=== PATIENT | male | born 1970 | race Caucasian/White ===

== ENCOUNTER 2024-09-19 21:02 | Emergency (ER) | payer OTHER, SELFPAY ==
[2024-09-19 21:07] VITALS: BP 194/112
[2024-09-19 21:29] LABS: % Basophils 0.5 % (0-2); % Eosinophils 2.2 % (0-6); % Immature Granulocytes 0.2 % (0-0.5); % Lymphocytes 16.7 % (20.5-51.1); % Monocytes 5.2 % (1.7-9.3); % Neutrophils 75.2 % (42.2-75.2); Absolute Basophils 0.1 10^3/uL (0-0.2); Absolute Eosinophils 0.2 10^3/uL (0-0.7); Absolute Lymphocytes 1.7 10^3/uL (1.2-3.4); Absolute Monocytes 0.5 10^3/uL (0.1-0.6); Absolute Neutrophils 7.7 10^3/uL (1.4-6.5); Hematocrit 42.6 % (39.0-52.0); Hemoglobin 15.1 g/dL (13.0-18.0); Mean Corp Hgb Conc. 35.4 g/dL (33.0-37.0); Mean Corpuscular Hgb 28.9 pg (27.0-31.0); Mean Corpuscular Volume 81.5 fL (80.0-94.0); Mean Platelet Volume 9.1 fL (7.4-10.4); Nucleated Red Blood Cells % 0 % (-); Platelet Count 230 10^3/uL (130-400); Red Blood Cell Count 5.23 10^6/uL (4.70-6.10); Red Cell Dist. Width 11.7 % (11.5-14.5); White Blood Cell Count 10.2 10^3/uL (4.8-10.8)
[2024-09-19 21:53] LABS: ALT (SGPT) 26 U/L (0-50); AST (SGOT) 21 U/L (17-59); Albumin 4.3 g/dl (3.5-5.0); Alkaline Phosphatase 135 U/L (38-126); Blood Urea Nitrogen 17 mg/dl (9-20); Calcium 9.3 mg/dl (8.4-10.2); Carbon Dioxide 26 mmol/L (22-30); Chloride 99 mmol/L (98-107); Glucose 318 mg/dl (70-99); Potassium 4.2 mmol/L (3.5-5.1); Sodium 134 mmol/L (135-145); Total Bilirubin 0.9 mg/dl (0.2-1.3); eGFR > 60.00
[2024-09-19 22:18] LABS: TSH Reflex To Free T4 1.07 uIU/ml (0.47-4.68)
== END 2024-09-20 00:30 ==
LOC: EMR 21:02
PROVIDERS: EMERGENCY PHYSICIAN Emergency Medicine
DX: R22.1 Localized swelling, mass and lump, neck (principal); Z53.29 Procedure and treatment not carried out because of patient's decision for other reasons
CPT/HCPCS: 80053; 84443; 85025

== ENCOUNTER 2025-03-29 23:20 | Inpatient (IN) | payer OTHER, SELFPAY ==
[2025-03-29 20:37] VITALS: BP 185/113
[2025-03-29 20:56] LABS: Hematocrit 46.7 % (39.0-52.0); Hemoglobin 16.0 g/dL (13.0-18.0); Mean Corp Hgb Conc. 34.3 g/dL (33.0-37.0); Mean Corpuscular Volume 80.1 fL (80.0-94.0); Nucleated Red Blood Cells % 0 % (-); Platelet Count 310 10^3/uL (130-400); Red Cell Dist. Width 12.5 % (11.5-14.5)
[2025-03-29 21:16] LABS: ALT (SGPT) 19 U/L (0-50); AST (SGOT) 17 U/L (17-59); Albumin 4.7 g/dl (3.5-5.0); Alkaline Phosphatase 134 U/L (38-126); Blood Urea Nitrogen 18 mg/dl (9-20); Calcium 9.4 mg/dl (8.4-10.2); Carbon Dioxide 26 mmol/L (22-30); Chloride 99 mmol/L (98-107); Glucose 416 mg/dl (70-99); Potassium 4.5 mmol/L (3.5-5.1); Sodium 135 mmol/L (135-145); Total Protein 8.5 g/dl (6.3-8.2); eGFR > 60.00
--- NOTE | 2025-03-29 22:31 | ED.GENMED ---
History of Present Illness
<Dayton Wen PA-C - Last Filed: 03/30/25 00:03>
General
Chief Complaint: Skin Problem
Source: patient
Time Seen by Provider: 03/29/25 21:47
History of Present Illness
History of Present Illness:
54-year-old male with no reported past medical history presenting to the emergency department for evaluation of a right foot ulcer that has been present for over 1 week, went to urgent care initially and was prescribed 2 separate antibiotics but
wound continues to worsen and become more malodorous. Patient notes there is some pain associated but states overall not very painful. He denies any fevers, chills, rigors. No history of similar. No known history of diabetes. Patient is unaware
of any trauma to the affected area.
Past History
<Dayton Wen PA-C - Last Filed: 03/30/25 00:03>
Past History
ED Past Medical History: None
ED Past Surgical History: Orthopedic
Social History
Tobacco: Smoker
Alcohol: None
Drug: None
Personal:
Living: with family
Review of Systems
<VERONA Narayan Last Filed: 03/30/25 00:03>
Review of Systems
All Other Systems: ROS reviewed and negative except as documented in HPI and ROS
Phy Exam
<Dayton Wen PA-C - Last Filed: 03/30/25 00:03>
Physical Exam
Physical Exam:
GENERAL: Alert , in no apparent distress
HEAD: Normocephalic atraumatic
EYE: conjunctiva clear
NECK: Supple
ENT: o/p clr, mmm.
CARDIAC: Regular rate and rhythm
LUNGS: Clear breath sounds bilaterally, no acute respiratory distress, no wheezes/rales/rhonchi
NEUROLOGICAL: Alert and oriented
SKIN: Warm and dry, approximately 2 cm black, purulent and significantly malodorous wound to the plantar surface of the midfoot medially, skin breakdown surrounding, wound probes into the deep tissues. Extremity is otherwise warm, palpable pedal
and tibial pulses.
MUSCULOSKELETAL: well perfused.
PSYCH: Normal and appropriate interaction.
Scores
<Dayton Wen PA-C - Last Filed: 03/30/25 00:03>
Heart Failure Risk
Heart Failure Risk Score: Not Applicable
Heart Score for Chest Pain Patients
STEMI patient?: Not applicable
Withdrawal Assessment of Alcohol
Withdrawal Assessment Completed?: Not applicable
Sepsis
<Dayton Wen PA-C - Last Filed: 03/30/25 00:03>
Sepsis Screening
Sepsis Assessment: Sepsis Ruled Out
Sepsis Screen
Sepsis Screen: Sepsis Ruled Out
Date: 03/30/25
Time: 00:03
<Joel Giles MD - Last Filed: 03/30/25 01:11>
Sepsis Screen
Sepsis Screen: Sepsis Ruled Out
Date: 03/30/25
Time: 01:07
Course
<Dayton Wen PA-C - Last Filed: 03/30/25 00:03>
Orders/Labs/Results
Orders:
Orders
03/29/25 20:36
CR Foot - Right Min 3 Views Urgent
Comment:
Reason For Exam: infection
03/29/25 20:45
C-Reactive Protein Urgent
Comment: ADD ON
Complete Blood Count/With Diff Urgent
Comprehensive Metabolic Panel Urgent
Erythrocyte Sed Rate Urgent
Comment: ADD ON
Blood Culture Q20M
RAUDEL Source: Blood/Venous
Specimen Description:
Comment: Urgent from separate sites. If patient screens positive for possible sepsis
03/29/25 22:27
Add On- LAB Urgent
Tests Added?: ESR/CRP
03/29/25 22:30
Piperacillin/Tazo 3.375 Gram [Zosyn] 3.375 gram in 50 ml IV NOW
03/29/25 22:31
0.9% Sodium Chloride 1000 ml [Nss] 1,000 ml IV BOLUS
Insulin Aspart [NOVOLOG vial] 6 units SC NOW STA
03/29/25 22:35
Blood Culture Q20M
RAUDEL Source: Blood/Venous
Specimen Description:
Comment: Urgent from separate sites. If patient screens positive for possible sepsis
Wound Culture [Wound/Abscess/Other Culture] Urgent
RAUDEL Source: Foot
Specimen Description: Right
Date Specimen was Collected: 03/29/25
Time Specimen was Collected: 22:33
03/29/25 22:59
Amlodipine [Norvasc] 5 mg PO NOW STA
Nicotine [Nicoderm Transdermal] 21 mg TRANSDERM DAILY STA
03/29/25 23:00
Flush (0.9% Sodium Chloride) [Flush (Nss)] See Dose Instructions IV PER PROTOCOL
03/29/25 23:01
Admit/Transfer Patient As Directed
Co-Sign Provider:
Level of Care: Inpatient admission
Assign to:: Medical/Surgical
Physician / Group: zay villarreal
Diagnosis: right foot diabetic ulcer, r great toe fx, new dm2, new htn
Reason for Hospitalization: right foot diabetic ulcer, r great toe fx, new dm2, new htn
Expected length of stay greater than two midnights?: Yes
ELOS- Estimated Length of Stay in days: 4
I certify the patient meets the requirements for IP care: Yes
Code Status As Directed
Resuscitation Status: Full Code
PODIATRY CONSULT Routine
Consulting Provider: Lilliana Acuna
Was physician already notified: Yes
Reason for consult: right heeel ulcer, left great toe fx new dm2
03/29/25 23:03
Vancomycin [Vancocin] 2,000 mg 0.9% Sodium Chloride 500 ml [Nss] 500 ml IV NOW
03/29/25 23:04
PRN Pain Medication Management As Directed
May give lesser potent ordered pain med per pt: Yes
preference::
Protocol:: Medication orders for pain may be administered in a
manner that supports deferring to patient preference
when the pt is:
- Requesting an ordered lesser potent pain medication.
Least to most potent pain medications are defined
as: acetaminophen < NSAID < tramadol < opioids
(morphine, oxycodone, hydromorphone).
- Requesting a lesser dose of the same medication IF
ORDERED.
- Requesting a less intrusive route of administration
if both routes are prescribed by the provider (PO <
IV).
03/29/25 23:13
Acetaminophen [Tylenol] 650 mg PO NOW STA
03/29/25 23:15
MRSA Screen Routine
RAUDEL Source: Nose
Specimen Description:
03/30/25 00:15
Acetaminophen [Tylenol] 650 mg PO Q4HPRN PRN
Bisacodyl [Dulcolax] 10 mg RECTAL [id number] PRN
Dextrose 50%-Water [Dextrose 50% Syringe] 12.5 grams IV [id number] PRN
Docusate W/Senna [Senokot-S] 1 tablet PO BIDPRN PRN
Glucagon [GlucaGen] 1 mg IM PRN PRN
Ondansetron Injectable [Zofran] 4 mg IV Q6HPRN PRN
Oxycodone [Roxicodone] 5 mg PO Q4HPRN PRN
Polyethylene Glycol Powder [Miralax] 17 grams PO DAILYPRN PRN
VANCOMYCIN Pharmacy to Dose [VANCOCIN Pharmacy to Dose] 1 each Pharmacy To Prepare [Call Pharmacy To Prepare] 0 ml IV PER PROTOCOL
03/30/25 00:15
Activity As Directed
Activity Level: As Tolerated
Bedside Glucose Monitoring As Directed
Frequency: AC&HS and Q3AM
Additional Instructions:: Change to q6h if pt on TPN, tube feeding or not eating
Vital Signs As Directed
Frequency: Per unit guidelines
Pt Eval And Treat Routine
Activity Level: As Tolerated
DX Deep Vein Thrombosis Video Routine
03/30/25 04:00
Piperacillin/Tazo 3.375 Gram [Zosyn] 3.375 gram in 50 ml IV Q6H
03/30/25 06:00
Cardiovascular Evaluation IN AM
Complete Blood Count/With Diff IN AM
Comprehensive Metabolic Panel IN AM
Glycohemoglobin (HgbA1c) IN AM
Low Ext Joint, Right With MR [MR Right Le Joint With] IN AM
Comment:
Reason For Exam: diabetic plantar fooot ulcer, r great toe fx
OK for patient to be off Cardiac Monitoring for MRI: Yes
Recent pill cam endoscopy?: No
Pacemaker/Defibrillator?: No
03/30/25 07:30
Insulin Aspart Corrective Mod [Novolog Flexpen-Moderate Resistance] See Protocol SC AC
03/30/25 08:00
Heparin 5,000 units SC Q12
03/30/25 Dinner
1800 calorie (15 carb) Diabetic
At Your Request: Full Participation
03/31/25 06:00
Complete Blood Count/With Diff IN AM
Comprehensive Metabolic Panel IN AM
04/01/25 06:00
Complete Blood Count/With Diff IN AM
Comprehensive Metabolic Panel IN AM
04/02/25 06:00
Complete Blood Count/With Diff IN AM
Comprehensive Metabolic Panel IN AM
Abnormal Lab Results
03/29/25
20:45
ESR 30 H mm/hour
(0-20)
Glucose 416 H mg/dl
(70-99)
Alkaline Phosphatase 134 H U/L
(38-126)
C-Reactive Protein 18.00 H mg/L
(0.0-10.00)
Total Protein 8.5 H g/dl
(6.3-8.2)
03/29/25 20:45
03/29/25 20:45
Vital Signs
Initial and Last Documented VS:
Initial Vital Signs
Temp Pulse Resp BP Pulse Ox
97.8 F 99 18 185/113 98
03/29/25 20:37 03/29/25 20:37 03/29/25 20:37 03/29/25 20:37 03/29/25 20:37
Last Documented Vital Signs
Temp Pulse Resp BP Pulse Ox
97.5 F 88 18 161/101 97
03/30/25 00:15 03/30/25 00:15 03/30/25 00:15 03/30/25 00:15 03/30/25 00:15
<Joel Giles MD - Last Filed: 03/30/25 01:11>
Orders/Labs/Results
Orders:
Orders
03/29/25 20:36
CR Foot - Right Min 3 Views Urgent
Comment:
Reason For Exam: infection
03/29/25 20:45
C-Reactive Protein Urgent
Comment: ADD ON
Complete Blood Count/With Diff Urgent
Comprehensive Metabolic Panel Urgent
Erythrocyte Sed Rate Urgent
Comment: ADD ON
Blood Culture Q20M
RAUDEL Source: Blood/Venous
Specimen Description:
Comment: Urgent from separate sites. If patient screens positive for possible sepsis
03/29/25 22:27
Add On- LAB Urgent
Tests Added?: ESR/CRP
03/29/25 22:30
Piperacillin/Tazo 3.375 Gram [Zosyn] 3.375 gram in 50 ml IV NOW
09/20/25 22:31
0.9% Sodium Chloride 1000 ml [Nss] 1,000 ml IV BOLUS
Insulin Aspart [NOVOLOG vial] 6 units SC NOW STA
03/29/25 22:35
Blood Culture Q20M
RAUDEL Source: Blood/Venous
Specimen Description:
Comment: Urgent from separate sites. If patient screens positive for possible sepsis
Wound Culture [Wound/Abscess/Other Culture] Urgent
RAUDEL Source: Foot
Specimen Description: Right
Date Specimen was Collected: 03/29/25
Time Specimen was Collected: 22:33
03/29/25 22:59
Amlodipine [Norvasc] 5 mg PO NOW STA
Nicotine [Nicoderm Transdermal] 21 mg TRANSDERM DAILY STA
03/29/25 23:00
Flush (0.9% Sodium Chloride) [Flush (Nss)] See Dose Instructions IV PER PROTOCOL
03/29/25 23:01
Admit/Transfer Patient As Directed
Co-Sign Provider:
Level of Care: Inpatient admission
Assign to:: Medical/Surgical
Physician / Group: zay villarreal
Diagnosis: right foot diabetic ulcer, r great toe fx, new dm2, new htn
Reason for Hospitalization: right foot diabetic ulcer, r great toe fx, new dm2, new htn
Expected length of stay greater than two midnights?: Yes
ELOS- Estimated Length of Stay in days: 4
I certify the patient meets the requirements for IP care: Yes
Code Status As Directed
Resuscitation Status: Full Code
PODIATRY CONSULT Routine
Consulting Provider: Lilliana Acuna
Was physician already notified: Yes
Reason for consult: right heeel ulcer, left great toe fx new dm2
03/29/25 23:03
Vancomycin [Vancocin] 2,000 mg 0.9% Sodium Chloride 500 ml [Nss] 500 ml IV NOW
03/29/25 23:04
PRN Pain Medication Management As Directed
May give lesser potent ordered pain med per pt: Yes
preference::
Protocol:: Medication orders for pain may be administered in a
manner that supports deferring to patient preference
when the pt is:
- Requesting an ordered lesser potent pain medication.
Least to most potent pain medications are defined
as: acetaminophen < NSAID < tramadol < opioids
(morphine, oxycodone, hydromorphone).
- Requesting a lesser dose of the same medication IF
ORDERED.
- Requesting a less intrusive route of administration
if both routes are prescribed by the provider (PO <
IV).
03/29/25 23:13
Acetaminophen [Tylenol] 650 mg PO NOW STA
03/29/25 23:15
MRSA Screen Routine
RAUDEL Source: Nose
Specimen Description:
03/30/25 00:15
Acetaminophen [Tylenol] 650 mg PO Q4HPRN PRN
Bisacodyl [Dulcolax] 10 mg RECTAL [id number] PRN
Dextrose 50%-Water [Dextrose 50% Syringe] 12.5 grams IV [id number] PRN
Docusate W/Senna [Senokot-S] 1 tablet PO BIDPRN PRN
Glucagon [GlucaGen] 1 mg IM PRN PRN
Ondansetron Injectable [Zofran] 4 mg IV Q6HPRN PRN
Oxycodone [Roxicodone] 5 mg PO Q4HPRN PRN
Polyethylene Glycol Powder [Miralax] 17 grams PO DAILYPRN PRN
VANCOMYCIN Pharmacy to Dose [VANCOCIN Pharmacy to Dose] 1 each Pharmacy To Prepare [Call Pharmacy To Prepare] 0 ml IV PER PROTOCOL
03/30/25 00:15
Activity As Directed
Activity Level: As Tolerated
Bedside Glucose Monitoring As Directed
Frequency: AC&HS and Q3AM
Additional Instructions:: Change to q6h if pt on TPN, tube feeding or not eating
Vital Signs As Directed
Frequency: Per unit guidelines
Pt Eval And Treat Routine
Activity Level: As Tolerated
DX Deep Vein Thrombosis Video Routine
03/30/25 04:00
Piperacillin/Tazo 3.375 Gram [Zosyn] 3.375 gram in 50 ml IV Q6H
03/30/25 06:00
Cardiovascular Evaluation IN AM
Complete Blood Count/With Diff IN AM
Comprehensive Metabolic Panel IN AM
Glycohemoglobin (HgbA1c) IN AM
Low Ext Joint, Right With MR [MR Right Le Joint With] IN AM
Comment:
Reason For Exam: diabetic plantar fooot ulcer, r great toe fx
OK for patient to be off Cardiac Monitoring for MRI: Yes
Recent pill cam endoscopy?: No
Pacemaker/Defibrillator?: No
03/30/25 07:30
Insulin Aspart Corrective Mod [Novolog Flexpen-Moderate Resistance] See Protocol SC AC
03/30/25 08:00
Heparin 5,000 units SC Q12
03/30/25 Dinner
1800 calorie (15 carb) Diabetic
At Your Request: Full Participation
03/31/25 06:00
Complete Blood Count/With Diff IN AM
Comprehensive Metabolic Panel IN AM
04/01/25 06:00
Complete Blood Count/With Diff IN AM
Comprehensive Metabolic Panel IN AM
04/02/25 06:00
Complete Blood Count/With Diff IN AM
Comprehensive Metabolic Panel IN AM
Abnormal Lab Results
03/29/25
20:45
ESR 30 H mm/hour
(0-20)
Glucose 416 H mg/dl
(70-99)
Alkaline Phosphatase 134 H U/L
(38-126)
C-Reactive Protein 18.00 H mg/L
(0.0-10.00)
Total Protein 8.5 H g/dl
(6.3-8.2)
03/29/25 20:45
03/29/25 20:45
Vital Signs
Initial and Last Documented VS:
Initial Vital Signs
Temp Pulse Resp BP Pulse Ox
97.8 F 99 18 185/113 98
03/29/25 20:37 03/29/25 20:37 03/29/25 20:37 03/29/25 20:37 03/29/25 20:37
Last Documented Vital Signs
Temp Pulse Resp BP Pulse Ox
97.5 F 88 18 161/101 97
03/30/25 00:15 03/30/25 00:15 03/30/25 00:15 03/30/25 00:15 03/30/25 00:15
<Dayton Wen PA-C - Last Filed: 03/30/25 00:03>
MDM/Problems Addressed
Differential Diagnosis Includes:
New onset diabetes
diabetic foot wound
Peripheral vascular disease wound
Cellulitis
Abscess
osteomyelitis
Fracture
MDM/Problems Addressed:
54-year-old male presenting to the ER for evaluation of a wound to the right foot, has been on 2 separate antibiotics but without any relief. Wound is significantly malodorous and noticeable upon just entering the room. It is purulent, black and
probes into the deep tissues, I do have concern for possible osteomyelitis. Labs initiated on arrival as well as x-ray, x-ray did show a fracture that is possibly subacute to the great toe. Wound is not over this area. Wound culture performed.
Broad-spectrum antibiotics ordered. Both hospitalist team and podiatry team to be notified. Patient also has a blood sugar of 416. I told the patient he has new onset diabetes. Will treat with subcutaneous insulin and IV fluids presently. Will
likely need assistant health educator consult.
<Dayton Wen PA-C - Last Filed: 03/30/25 00:03>
*Radiology
Radiology exam reviewed: preliminary read by ED provider (No definitive osteomyelitis)
*Pulse Oximetry
SaO2: 98
Oxygen Mode of Delivery: Room air
Patient hypoxic: no
*Critical Care Note
Total Time (30-74mins, 75-104mins- exclusive of procedures): Not Applicable
<Dayton Wen PA-C - Last Filed: 03/30/25 00:03>
Patient Management
Discussion with other providers: Hospitalist and Fence Laborer
ED Attending Note
<Dayton Wen PA-C - Last Filed: 03/30/25 00:03>
-
Portions of this chart may have been created with voice recognition software.� Occasional wrong word or��sound alike� substitutions may have occurred due to the inherent limitations of voice recognition software.
<Joel Glies MD - Last Filed: 03/30/25 01:11>
ED Attending Note
Patient seen and examined by attending physician: Yes
ED Attending Note:
Patient presents to ED for evaluation secondary to worsening right foot pain with swelling, foul-smelling drainage over the past 2 weeks. Denies fever or chills. Denies nausea or vomiting. Denies direct trauma. However, patient does report
seeing 'black speck' at onset, which he tried to remove. Denies previous history of similar symptoms. Patient otherwise is healthy without any significant past medical history.
Physical Exam
General: no apparent distress, not acutely ill. afebrile
Head: nc/at. eomi
Neck: supple. no meningeal signs
Neuro: alert and oriented x 3. no focal neurological deficits
Skin: right foot: an approx 2cm diameter ulcer noted on the plantar surface w foul smelling drainage.
Psychiatric: well kept. interactive and cooperative
Extremities: no edema. no calf tenderness.
Blood work significant for hyperglycemia, raising possibility of nonhealing diabetic foot ulcer. Patient will be admitted for IV antibiotics.
Discharge Plan
Departure
Patient Disposition: Admit
Date of Disposition: 03/29/25
Time of Disposition: 22:31
Presentation/result/management discussed w/ accepting MD/DO: Hospitalist
Discharge Problem:
Foot ulcer, right, Diabetes mellitus, new onset, Closed fracture of great toe of right foot
Interventions
Interventions:
*Risk Screen - Suicide Last Done: 03/29/25 20:37
*General Assessment Last Done: 03/29/25 21:54
*Neglect/Abuse Screening Last Done: 03/29/25 23:55
*ED- Fall Risk Assessment Last Done: 03/29/25 21:54
*ED COVID-19 Vaccine History Last Done: 03/29/25 23:55
*Nursing Disposition Last Done: 03/30/25 00:10
ED-Skin Assessment Last Done: 03/29/25 21:54
Discharge Date and Time
Discharge Date/Time: 03/30/25 00:11
--- NOTE | 2025-03-29 22:34 | HPS.HSE ---
Addendum entered and electronically signed by Canelo Ayers DO 03/29/25 23:35:
Patient seen and examined independently. Agree with findings and plan as set forth by MAXIMILIANO Andersen.
Patient is a 54y M with no known PMH who presents to ED complaining of R foot pain for about two weeks. Patient states that he initially felt some pain in the R instep area and saw a small 'black speck'. He attempted to dig it out. He also
states that he felt as if something may have bitten him in that area - though he did not see any spider, insect, etc. His pain increased and he developed an open wound in the area. He was seen at an Urgent care and prescribed abx with no
improvement in his symptoms.
He complains of pain in the foot. No fevers / chills.
Ass:
Right Foot Diabetic Wound
DM-II - New Diagnosis
Benign Hypertension - New Diagnosis
Right First Toe Fracture
Tobacco Use Disorder
Plan:
Admit for further evaluation and treatment.
IV abx with Vanco / Zosyn for now.
Podiatry consulted for further evaluation and likely need for OR / debridement.
Check MRI for further evaluation of extent of infection.
Follow glucose and cover with SSI. Check A1C.
DM education and begin med regimen / basal:bolus insulin prior to discharge.
Begin antihypertensive med regimen ans adjust as needed for improved BP control.
Encourage smoking cessation.
Original Note:
Family Physician
-
Family Physician:
Chief Complaint
-
Right foot ulcer with malodorous drainage right great toe swollen after dropping wood on it
History of Present Illness
54-year-old male with a right foot wound x 1 week that is malodorous with purulent drainage. He reports on 03 17 he was riding a mower standing with his work boots on for approximately 2 hours after getting off of the mower he noticed that his foot
hurt when he took his boot off he noticed a black dot on the plantar mid aspect which he dug out with tweezers. He reported pain and some erythema the next day. Also that day he happened to drop a wood log onto his right great toe which has a
scratch on the anterior surface. He went to urgent care and was prescribed Keflex of which he is still not finished although should have been done. He has not seen a doctor in over 7 years in the ER he was noted to have new onset DM 2, fracture of
proximal right great toe, new diagnosis hypertension. He denies fever, chills, chest pain, potation's, cough, shortness breath, abdominal pain, nausea, vomiting, diarrhea, urinary symptoms. He states he had a history of obesity however over the
past 5 years with his diet he states he lost 125 pounds.
Medical History
Past Medical History
Past Medical History: Reports Other
Additional Past Medical History:
Prior history of back pain requiring fusion
Past Surgical History: Reports Other
Additional Past Surgical History:
ACL repair x 3
Fusion T12-L1, L2-L3
Thyroid duct cyst removal
Social History
Tobacco: Smoker (Three-quarter pack a day)
Alcohol: None
Drug: Marijuana (Nightly)
Personal: Partner (Girlfriend)
Living: With Family
Employment: Not Employed
Family History
Family History: Other (Mother history A-fib DM 2, Alzheimer's living, father [place] age 78 history of CAD/stent, 1 full blood sibling of' hole in heart '10 days old patient with 13 half siblings from his father all boys 3 1 from
old age age 80s 1 alcohol abuse 1 cardiac disease/CABG unsure of 10 other s)
Allergies / Home Medications
Allergies reflects when Allergies were last updated in [facility].
Home Medications with original date entered in [facility]
Allergy/Medication List:
Allergies
Allergy/AdvReac Type Severity Reaction Status Date / Time
No Known Allergies Allergy Unverified 05/28/23 16:24
Home Medications
cephalexin 500 mg capsule 500 mg PO QID 03/29/25
sulfamethoxazole 800 mg-trimethoprim 160 mg tablet (Bactrim DS) 1 tab PO Q12H 03/29/25
Review of Systems
-
History Source: Patient and Family (Girlfriend at bedside)
A 12 point ROS was completed and negative except as noted: Yes
Constitutional: Denies Fever or Chills
EENT: Denies Sore Throat or Runny Nose
Respiratory: Denies Cough or Trouble Breathing
Cardiac: Denies Chest Pain, Diaphoresis, Palpitations or Syncope
Abdomen/GI: Denies Abdominal Pain, Nausea, Vomiting, Diarrhea or Constipated
: Denies Dysuria, Frequency, Flank Pain or Incontinence
Musculoskeletal: Reports Joint Pain (Right great toe with swelling, anterior abrasion noted proximal phalanx)
Skin: Reports Other (Right mid foot plantar aspect large open ulceration with malodorous drainage and surrounding erythema extending to dorsal aspect of foot); Denies Itching or Rash
Neurological: Denies Dizzy or Headache
Endocrine: Reports No Symptoms
Hematologic/Lymphatic: Reports No Symptoms
Psych: Reports Calm
Physical Exam
Vital Signs
Vital Signs
Temp Pulse Resp BP Pulse Ox
97.8 F 99 18 185/113 98
03/29/25 20:37 03/29/25 20:37 03/29/25 20:37 03/29/25 20:37 03/29/25 22:31
Physical Exam
General: Pain; No Fever or Chills
HEENT: NormoCephalic, Anicteric, Moist mucous membranes, [place] Conjunctivae and No Ptosis
Respiratory: Clear; No Wheezes or Rales
Cardiac: S1/S2 and Regular Rhythm; No Murmur, Rub, Gallop or Peripheral Edema
Breast: Deferred by me
GI: Soft, Non Tender and Normal Bowel Sounds
Rectal: Deferred by Provider
Genito-urinary: Deferred by me
Musculoskeletal: No Clubbing, No Cyanosis and Edema, Right Lower Extremity (Right mid foot plantar aspect large open ulceration with malodorous drainage and surrounding erythema extending to dorsal aspect of foot); No Edema, Left Upper Extremity,
Edema, Right Upper Extremity or Edema, Left Lower Extremity
Skin: Warm and Dry; No Rash
Neuro: AO x 3, No Motor Deficits and Nonfocal/grossly intact; No Slurred Speech, Facial Droop, Tremors or Sedated
Psych: Calm
Laboratory Results
-
03/29/25 20:45
03/29/25 20:45
Laboratory Results
Total Bilirubin 0.5 mg/dl (0.2-1.3) 03/29/25 20:45
AST 17 U/L (17-59) 03/29/25 20:45
ALT 19 U/L (0-50) 03/29/25 20:45
Alkaline Phosphatase 134 U/L (38-126) H 03/29/25 20:45
Impression/Plan
-
Impression/plan:
Admit to MedSurg
#New onset DM 2
Blood sugar 416
Check HgbA1c
-NovoLog 6 units subcu given in ER
-Accu-Cheks with SSI moderate
- Will need chemical educator
-
#Right foot plantar ulcer complicated with new onset DM 2
- Obtain wound culture
- Check nasal MRSA swab
- Blood cultures x 2
- IV vancomycin IV Zosyn
-Tylenol, oxycodone for moderate pain
-MRI right foot in a.m.
- Consult podiatry
#Comminuted fracture proximal phalanx right great toe secondary to wood falling on foot
- Injuries 12 days old
#HTN�new diagnosis
BP 185/113 patient denies headache or chest pain
Will give Norvasc 5 mg now then Norvasc 5 mg daily
#Nicotine abuse
#Marijuana use
Three-quarter pack smoker a day
-Cessation advised
-Nicotine patch 21 mg
-Smokes marijuana flower or edibles nightly
DVT prophylaxis
Subcu heparin
Full code
[2025-03-29] MEDS: NSS 1000 IV (22:35)
[2025-03-29] MEDS: NOVOLOG vial 6 UNITS SC (22:37)
[2025-03-29] MEDS: ZOSYN 50 IV (22:39)
[2025-03-29 23:06] VITALS: BP 162/101
[2025-03-29 23:20] LABS: C-Reactive Protein 18.00 mg/L (0.0-10.00)
[2025-03-29 23:24] VITALS: BP 161/99
[2025-03-29] MEDS: NORVASC 5 MG PO (23:24)
[2025-03-29] MEDS: TYLENOL 650 MG PO (23:26)
[2025-03-29] MEDS: NICODERM TRANSDERMAL 21 MG TRANSDERM (23:27)
[2025-03-29] MEDS: VANCOCIN 540 MG IV (23:27)
[2025-03-29 23:45] VITALS: BP 149/98
[2025-03-30 00:15] VITALS: BP 139/80
[2025-03-30 00:21] LABS: Glucose - Point of Care 279 mg/dl (70-99)
[2025-03-30 00:22] VITALS: BMI 22.0
[2025-03-30] MEDS: ZOSYN 50 IV ×4 (04:28→21:30)
[2025-03-30 06:36] LABS: Hematocrit 40.2 % (39.0-52.0); Hemoglobin 13.9 g/dL (13.0-18.0); Mean Corp Hgb Conc. 34.6 g/dL (33.0-37.0); Mean Corpuscular Volume 81.7 fL (80.0-94.0); Nucleated Red Blood Cells % 0 % (-); Platelet Count 280 10^3/uL (130-400); Red Cell Dist. Width 12.3 % (11.5-14.5)
[2025-03-30 06:56] LABS: ALT (SGPT) 15 U/L (0-50); AST (SGOT) 14 U/L (17-59); Albumin 3.7 g/dl (3.5-5.0); Alkaline Phosphatase 104 U/L (38-126); Blood Urea Nitrogen 15 mg/dl (9-20); Calcium 8.9 mg/dl (8.4-10.2); Carbon Dioxide 27 mmol/L (22-30); Chloride 104 mmol/L (98-107); Estimated Creatinine Clearance > 125 ml/min; Glucose 220 mg/dl (70-99); HDL Cholesterol 30 mg/dl; LDL Cholesterol, Calculated 43 mg/dl; Potassium 4.3 mmol/L (3.5-5.1); Sodium 137 mmol/L (135-145); Total Protein 7.0 g/dl (6.3-8.2); Very Low Density Lipoprotein 15 mg/dl (0-30); eGFR > 60.00
--- NOTE | 2025-03-30 07:48 | PHA.VAN.IN ---
Assessment
- Assessment
Renal Function: Appears similar to baseline
Concomitant Antimicrobials: PIPERACILLIN/TAZOBACTAM
AUC Dosing Plan
- Dosing Variables
Dosing Weight (kg): 91
Dosing CrCl (ml/min): 125
Vd coefficient (L/kg): 0.7
- Empiric Dosing
Initial / Loading Dose: VANCO 2000MG X1
Maintenance Regimen: VANCO 1000MG Q8H
Estimated AUC (mcg*h/mL): 460
Estimated Peak (mcg*h/mL): 27.2
Estimated Trough (mcg/ml): 12.7
Estimated Half Life (H): 6.4
- Monitoring
Peak level is ordered to be drawn (date/time): 03/31 @0100
Trough level is ordered to be drawn (date/time): 03/31 @0530
Pharmacokinetics Vancomycin I
- -
Patient Age: 54
Patient Sex: Male
Vancomycin Day #: 2
Indication: Diabetic Foot
Requesting Provider: JERROD DYSON
Height / Weight:
Height 6 ft 8 in
Actual Weight 90.855 kg
Pertinent Past Medical History: DM2
- Vital Signs / Lab Results
Temp Pulse Resp BP Pulse Ox
97.5 F 79 18 139/80 97
03/30/25 00:15 03/30/25 00:15 03/30/25 00:15 03/30/25 00:15 03/30/25 00:15
Lab Results - Hematology
03/29/25 03/30/25
20:45 06:03
WBC 9.8 8.7
Lab Results - Chemistry
03/29/25 03/30/25
20:45 06:03
BUN 18 15
Creatinine 0.7 0.7
Estimated Creat Clear > 125
Albumin 4.7 3.7
[2025-03-30 07:55] VITALS: BP 132/86
[2025-03-30 07:55] LABS: Glucose - Point of Care 219 mg/dl (70-99)
[2025-03-30] MEDS: VANCOCIN 200 IV ×3 (08:20→22:15)
[2025-03-30] MEDS: NORVASC 5 MG PO (08:22)
[2025-03-30] MEDS: NOVOLOG FLEXPEN-MODERATE RESISTANCE 3 UNITS SC (08:22)
[2025-03-30] MEDS: HEPARIN 5000 UNITS SC ×2 (08:33→19:37)
--- NOTE | 2025-03-30 10:43 | CON.MD ---
Consultation - Medical
-
54 year old male with no PMH admitted with right foot ulcer. Patient recalls about 10 days ago standing on a riding mower and feeling a sudden pain as if something 'bit his foot'. Notices a small black spot and thought it may be a stinger and
tried to dig it out. He then began to experience increased pain, swelling and redness in the area and noticed drainage with malodor. Went to urgent care and was given prescriptions for both Cephalexin and Bactrim DS, however symptoms increased in
severity.
On exam, pedal pulses are diminished bilaterally. General edema with erythema in the right midfoot but no ascending cellulitis present. Reduced response to painful stimuli noted. 2 cm ulcer present medial foot with central necrosis, malodor and
purulent drainage. Probes to deep tissue.
WBC 9.8 on admission with elevated CRP and Blood glucose 416 on admission now decreased to 220. Radiographs show comminuted fracture of the right hallux proximal phalanx. No obvious cortical changes at the area of the ulceration, and gas noted is
localized to the open ulcer site.
Impression/Plan
-Right foot infected ulcer
Likely began with injury described but exacerbated by undiagnosed diabetes mellitus. Patient does not have pain in proportion to the nature of the injury due to diabetic neuropathy.
Responding to IV antibiotic therapy but will need an aggressive surgical debridement of all necrotic tissue. Await MRI results to assess extent and location of the infection to better plan surgical approach. Patient currently stable, no sepsis.
I and D of ulcer/ abscess to be scheduled tomorrow evening. NPO after breakfast tomorrow.
-Right hallux proximal phalanx fracture
Patient unsure how this occurred and notices some discomfort, but again not in proportion to the injury due to diabetic neuropathy
[2025-03-30 11:15] LABS: Glycohemoglobin (HgbA1c) 10.6 % (4.0-5.6)
[2025-03-30 11:37] LABS: Glucose - Point of Care 301 mg/dl (70-99)
[2025-03-30] MEDS: NOVOLOG FLEXPEN-MODERATE RESISTANCE 7 UNITS SC (11:38)
--- NOTE | 2025-03-30 13:12 | W.PN.HOSP.TC ---
Today's Communication/Plan
-
see note
Assessment / Plan
Assessment / Plan
# Right diabetic foot infection
-Wound culture collected in ER
-MRI foot and lower extremity JT/TBI pending
- Maintain on empiric vancomycin and Zosyn
-Wound care/podiatry follow
-Plan for patient to go to the OR tomorrow
# Right great toe proximal phalynx subacute fracture
- Presumably patient may have injured toe and would not have sensed it with diabetic neuropathy
- Await podiatry recommendation
#New onset DM 2
-Glucose 416 at admission
-Hemoglobin A1c pending
-Discussed potentially patient may require to be discharged on insulin
-primary special educator consulted.
# Essential HTN
Hypertensive urgency - resolved
-Blood pressure was in systolic 185 in ER
-Has been started on Norvasc 5 mg daily, further dose adjustment based on response
#Nicotine abuse
#Marijuana use
-Three-quarter pack smoker a day
-Cessation advised
-Nicotine patch 21 mg
-Smokes marijuana flower or edibles nightly
DVT prophylaxis Subcu heparin
Full code
Total time spent 56-minute
Anticipated Discharge: > 48 hours
Subjective/Interval History
-
Date of Service: March 30, 2025
Denies of having any right foot pain
Afebrile in the night
No other new complaint
Objective Data
-
Labs:
Laboratory Results
03/30/25
06:03
WBC 8.7
Hgb 13.9
Hct 40.2
Plt Count 280
Sodium 137
Potassium 4.3
Chloride 104
Carbon Dioxide 27
BUN 15
Creatinine 0.7
Glucose 220 H
Calcium 8.9
Total Bilirubin 0.6
AST 14 L
ALT 15
Alkaline Phosphatase 104
Vital Signs:
Vital Signs
Temp Pulse Resp BP Pulse Ox
97.6 F 81 18 132/86 98
03/30/25 07:55 03/30/25 07:55 03/30/25 07:55 03/30/25 08:22 03/30/25 07:55
I&O
03/29/25 03/30/25 03/31/25
06:59 06:59 06:59
Intake Total 580 / 580
Balance 580 / 580
Review of Systems
-
Respiratory: Reports No Symptoms
Cardiac: Reports No Symptoms
Abdomen/GI: Reports No Symptoms
Physical Exam
-
General: No Apparent Distress and Comfortable
HEENT: Negative Oxygen
Musculoskeletal: No Edema
Skin: Other (Right foot dressing in place )
Neuro: Awake, Alert, Oriented, No Motor Deficits and Nonfocal/Grossly Intact
Psych: Calm
--- NOTE | 2025-03-30 13:52 | CM ---
Alert awake oriented patient who lives with Sandra QUINTANILLA in a 1 level home with a ramp to enter.Pt is independent in driving and all ADLs.
No adaptive devices.Declined VN .
[facility] V[facility] hx, No SNf hx.
Pharmacy [place]
No PCP He said he would call back of card for PCP under his insurance.
PLAN For OR tomorrow. Home no anticipated needs
[2025-03-30 15:21] VITALS: BP 137/86
[2025-03-30 16:53] LABS: Glucose - Point of Care 265 mg/dl (70-99)
[2025-03-30] MEDS: NOVOLOG FLEXPEN-MODERATE RESISTANCE 5 UNITS SC (17:29)
[2025-03-30] MEDS: ROXICODONE 5 MG PO ×2 (19:36→23:38)
[2025-03-30 21:34] LABS: Glucose - Point of Care 244 mg/dl (70-99)
[2025-03-30 23:15] VITALS: BP 157/97
[2025-03-30] MEDS: TYLENOL 650 MG PO (23:35)
[2025-03-31] VITALS (8 sets, daily range): BP systolic 109–151; BP diastolic 77–93
[2025-03-31] MEDS: ZOSYN 50 IV ×4 (04:57→21:40)
[2025-03-31 06:13] LABS: ALT (SGPT) 16 U/L (0-50); AST (SGOT) 14 U/L (17-59); Albumin 3.8 g/dl (3.5-5.0); Alkaline Phosphatase 99 U/L (38-126); Blood Urea Nitrogen 12 mg/dl (9-20); Calcium 9.4 mg/dl (8.4-10.2); Carbon Dioxide 28 mmol/L (22-30); Chloride 104 mmol/L (98-107); Estimated Creatinine Clearance > 125 ml/min; Glucose 186 mg/dl (70-99); Potassium 4.1 mmol/L (3.5-5.1); Sodium 135 mmol/L (135-145); Total Protein 7.1 g/dl (6.3-8.2); eGFR > 60.00
[2025-03-31 06:19] LABS: Hematocrit 43.6 % (39.0-52.0); Hemoglobin 14.8 g/dL (13.0-18.0); Mean Corp Hgb Conc. 33.9 g/dL (33.0-37.0); Mean Corpuscular Volume 81.2 fL (80.0-94.0); Nucleated Red Blood Cells % 0 % (-); Platelet Count 242 10^3/uL (130-400); Red Cell Dist. Width 12.2 % (11.5-14.5)
[2025-03-31] MEDS: VANCOCIN 200 IV (06:25)
[2025-03-31] MEDS: ROXICODONE 5 MG PO ×4 (06:36→22:02)
[2025-03-31 07:10] LABS: Glucose - Point of Care 214 mg/dl (70-99)
[2025-03-31] MEDS: HEPARIN 5000 UNITS SC (07:50)
[2025-03-31] MEDS: NORVASC 5 MG PO (07:52)
[2025-03-31] MEDS: NOVOLOG FLEXPEN-MODERATE RESISTANCE 3 UNITS SC (07:54)
--- NOTE | 2025-03-31 09:17 | W.PN.UPDATE ---
Update Note
Progress Note Update
MRI shows extensive 8x2x3 cm abscess but no indication for osteomyelitis.
Vascular ultrasound pending as DP pulse palpable but PT absent.
NPO now for surgical I and D abscess late afternoon today.
--- NOTE | 2025-03-31 09:54 | PHA.VAN.FU ---
Vancomycin Assessment / Plan
- Assessment
Renal Function: Stable
WBC's are: WNL
In the past 24 hrs, patient has been: Afebrile
Concomitant Antimicrobials: Piperacillin/tazobactam
- Assessment - Therapeutic Drug Monitoring
Extrapolated Cmax (mcg/mL): 20.4
Peak level was drawn: Appropriately
Extrapolated Cmin (mcg/mL): 12.7
Trough Drawn: Appropriately
Levels were drawn: Pre-steady state (levels drawn after 3rd dose of Vanc 1000mg Q8)
Calculated AUC (mcg*h/mL): 390
Calculated ke: 0.068
Calculated half life (H): 10.2
Calculated Vd (L): 113
Calculated Vanc CL (ml/min): 128
- Dosing Plan
Adjust Regimen to: Vancomycin 1500mg IV Q12h- give additional vanc 500mg now.
New Regimen Predicts: AUC (410), Peak (24), Trough (12)
Will adjust dosing to Q12h since calculated t1/2 is 10 hours.
- Monitoring Plan
No level(s) ordered at this time: Consider levels in a few days on new dose.
- Follow Up
Pharmacy will continue to follow.
Vancomycin Follow UP
- -
Patient Age: 54
Patient Sex: Male
Vancomycin Day #: 3
Indication: Diabetic Foot
Requesting Provider: MAXIMILIANO Andersen
Pertinent Antimicrobial Allergies:
NKA
Height / Weight:
Height 6 ft 8 in
Actual Weight 90.855 kg
Pertinent Past Medical History: DM2
- Vital Signs / Lab Results
Temp Pulse Resp BP Pulse Ox
97.4 F 74 18 151/93 99
03/31/25 07:15 03/31/25 07:52 03/31/25 07:15 03/31/25 07:52 03/31/25 07:15
Lab Results - Hematology
03/29/25 03/30/25 03/31/25
20:45 06:03 05:51
WBC 9.8 8.7 7.2
Lab Results - Chemistry
03/29/25 03/30/25 03/31/25
20:45 06:03 05:51
BUN 18 15 12
Creatinine 0.7 0.7 0.7
Estimated Creat Clear > 125 > 125
Albumin 4.7 3.7 3.8
Microbiology Results
03/29/25 23:15 MRSA Screen - Final
Nose No Methicillin Resistant Staphylococcus aureus isolated.
03/29/25 22:35 Blood Culture - Preliminary
Blood/Venous No Growth in 24 hours- Final report to follow
03/29/25 20:45 Blood Culture - Preliminary
Blood/Venous No Growth in 24 hours- Final report to follow
03/29/25 22:35 Gram Stain - Preliminary
Foot - Right
Therapeutic Drug Monitoring
Vancomycin Peak 18.1 ug/ml (18-26) 03/31/25 00:59
Vancomycin Trough 13.0 ug/ml (5-20) 03/31/25 05:51
--- NOTE | 2025-03-31 10:04 | PN.DE.MGMTRT ---
Insulin Management
- -
03/31/2025: Diabetes Management Consult
54 year old male with PMH: HTN, New onset T2DM, admitted for right foot diabetic wound. Noted for Hyperglycemia on admission, glucose 416 Venous, A1C 10.6%, Cr 0.7, eGFR >60. He has no PCP and hasn't been to a doctor in a few years. Patient was
started on moderate corrective insulin.
MRI shows extensive 8x2x3 cm abscess but no indication for osteomyelitis. Vascular US pending. NPO for surgical I&D abscess today.
Pt awake, alert, sitting up in bed, offers no complaints, able to discuss diabetes care plan and nutrition counseling.
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
Reports >100 lbs weight loss 6-8 years ago when he was told he was pre-diabetic. He has since tried to remain active and 'eat clean'
Reports a significant family hx of T2DM, his Mom has diabetes and is on insulin.
Pre meal glucose yesterday was 219 to 301 received 3-7 units of corrective insulin with meals.
HS blood sugar was 244, received no insulin at bedtime, FBG 186 V, 214 POC this AM.
Will start AC NovoLog 5 units and HS Lantus 15 units. Cont moderate corrective insulin.
Will start Metformin 500mg BID when all procedures and tests are done.
Will consult Dietary for nutrition counseling.
Pt will be seen by the diabetes Nurse Educator for monitor and insulin instructions.
Discussed with Nurse and instructed to HOLD AC NovoLog while NPO and to use corrective insulin.
Diabetes History
- -
Type of Diabetes: 2 requiring insulin
Pre-Admission Diabetes Regimen
03/31/25
05:51
Creatinine 0.7
Lab Results
Hemoglobin A1c 10.6 % (4.0-5.6) H 03/30/25 06:03
Insulin Pump Settings
IP Diabetes Regimen
03/30/25 03/30/25 03/30/25
11:36 16:52 21:32
Glucose
POC Glucose 301 H 265 H 244 H
03/31/25 03/31/25
05:51 07:08
Glucose 186 H
POC Glucose 214 H
Meal type: Lunch
Meal type: Breakfast
Amount consumed: 90%
Amount consumed: 100%
Patient Education
--- NOTE | 2025-03-31 10:11 | WOUNDNOTE ---
L GREAT TOE (SIDE OF)
--- NOTE | 2025-03-31 10:11 | WOUNDNOTE ---
L GREAT AND 2ND TOES
--- NOTE | 2025-03-31 10:21 | WOUNDNOTE ---
[facility] RN note: Patient admitted with R foot diabetic ulcer with abscess, R toe fracture, new DM diagnosis. Patient is a titus.
See H&P for complete history.
PMH: knee surgery, back surgery, smoker, impaired hearing on L.
Wound Location and type/assessment: Patient admitted with: R plantar foot full thickness ulcer with liquifying brown necrotic tissue with foul odor. Distal plantar foot small opening unsure if communicates with deeper ulcer. Small scabbed abrasions
on R heel and ankle patient stated was from [facility]. R anterior ankle with linear mild red ani. L great and L 2nd toe tip with dry scabbed ulcer/callus. Coccyx linear dermal open areas with callus/dry skin suspect r/t pressure/moisture. Patient
confirmed was present on admission. He says he's been sitting a lot the last 2 weeks.
Appetite: NPO for surgery R foot.
Pressure redistribution devices in place: Eight[employer]um[employer]. Patient can turn self in bed. Patient is aware he should be NWB R foot.
Plan: R foot dressing changed. Heels off bed with followed bath blankets and air chair cushion. t/c SPD and ordered pillows. Instructed patient pressure injury prevention measures. Will confirm NWB R foot order with Dr. Acuna. Can Tender to
manage patient's foot/toe wounds.
Care plan to be updated. Will sign off. Can Tender can re-consult as needed. Discussed with ROCIO Pat.
Note to case management requested for discharge: VN if needed. Patient to follow up with receivables specialist.
[2025-03-31] MEDS: VANCOCIN HCL 500 MG 100 IV (10:49)
[2025-03-31 11:50] LABS: Glucose - Point of Care 253 mg/dl (70-99)
--- NOTE | 2025-03-31 12:22 | CM ---
Patient chart reviewed
NPO now for surgical I and D abscess late afternoon today
PLAN: Home when stable, CM to continue to follow for needs
[2025-03-31] MEDS: NOVOLOG FLEXPEN-MODERATE RESISTANCE 5 UNITS SC (12:36)
--- NOTE | 2025-03-31 14:08 | W.PN.HOSP.TC ---
Today's Communication/Plan
-
see outlined plan below
Assessment / Plan
Assessment / Plan
Assessment:
Right diabetic foot infection
- Wound culture collected in ER
- MRI: Large draining wound/abscess along the plantar medial subcutaneous tissues of the hindfoot/midfoot measuring approximately 8.2 x 2.8 x 3.0 cm. Adjacent underlying soft tissue edema. Adjacent reactive tenosynovitis of the posterior tibialis
and flexor digitorum longus tendons. Additional visualized tendons and ligaments are grossly intact.
- JT/TBI: normal
- Podiatry following for OR I&D today
- continue Vanc/Zosyn
- will consult ID in AM
Right great toe proximal phalanx subacute fracture
- Presumably patient may have injured toe and would not have sensed it with diabetic neuropathy
- Podiatry following
New onset DM 2
- A1c is 10.6%
- started on Lantus 15 units HS
- started on Aspart 5 units AC
- diabetes FEEDER LOADER following
- diabetes educators consulted
Essential HTN with urgency
- start Lisinopril 10mg daily; stop Amlodipine
Nicotine abuse
Marijuana use
- three-quarter pack smoker a day
- cessation advised
- nicotine patch 21 mg
- smokes marijuana flower or edibles nightly
DVT ppx: SC heparin
Code: Full
Anticipated Discharge: > 48 hours
Subjective/Interval History
-
Date of Service: March 31, 2025
pain controlled
no fevers
for OR intervention today
Objective Data
-
Labs:
Laboratory Results
03/31/25
05:51
WBC 7.2
Hgb 14.8
Hct 43.6
Plt Count 242
Sodium 135
Potassium 4.1
Chloride 104
Carbon Dioxide 28
BUN 12
Creatinine 0.7
Glucose 186 H
Calcium 9.4
Total Bilirubin 0.8
AST 14 L
ALT 16
Alkaline Phosphatase 99
Vital Signs:
Vital Signs
Temp Pulse Resp BP Pulse Ox
97.4 F 74 18 151/93 99
03/31/25 07:15 03/31/25 07:52 03/31/25 07:15 03/31/25 07:52 03/31/25 07:15
I&O
03/30/25 03/31/25 04/01/25
06:59 06:59 06:59
Intake Total 580 / 580 1160 / 1160
Output Total 3820 / 3820
Balance 580 / 580 -2660 / -2660
Physical Exam
-
General: No Apparent Distress
HEENT: Normocephalic and Atraumatic
Respiratory: Negative Wheezes
Cardiac: Regular Rhythm and S1/S2
GI: Soft
Musculoskeletal: No Edema
Skin: Other (Right foot dressing in place)
Neuro: AO x 3
Psych: Calm
Data Reviewed
-
Total Time Spent with Patient (in minutes): 45
Labs: Labs Reviewed by me
[2025-03-31 16:37] LABS: Glucose - Point of Care 154 mg/dl (70-99)
[2025-03-31] MEDS: NOVOLOG FLEXPEN SC (16:38)
[2025-03-31] MEDS: NOVOLOG FLEXPEN-MODERATE RESISTANCE SC (16:38)
[2025-03-31] MEDS: VANCOCIN 530 MG IV (17:58)
--- NOTE | 2025-03-31 20:02 | W.PN.UPDATE ---
Update Note
Progress Note Update
Patient to OR tonight for I and D right foot abscess/ulcer. Patient tolerated procedure and anesthesia without complications and returned to the recovery room with vital signs stable and neurovascular status in tact. Wound cultures taken and
incision sight packed open. Distal incision with retention sutures. Strict non weight bearing until further notice.
[2025-03-31] MEDS: DILAUDID 0.5 MG IV ×2 (20:09→20:23)
[2025-03-31 20:21] LABS: Glucose - Point of Care 159 mg/dl (70-99)
[2025-03-31] MEDS: HEPARIN SC (21:27)
[2025-03-31 21:31] LABS: Glucose - Point of Care 147 mg/dl (70-99)
[2025-03-31] MEDS: LANTUS 0.15 UNITS SC (21:32)
[2025-04-01] VITALS (7 sets, daily range): BP systolic 105–147; BP diastolic 67–91; PULSE 87–94; O2SAT 97
[2025-04-01] MEDS: ROXICODONE 5 MG PO ×3 (01:57→15:19)
[2025-04-01] MEDS: DILAUDID 0.5 MG IV (02:49)
[2025-04-01] MEDS: ZOSYN 50 IV ×4 (03:58→22:03)
[2025-04-01] MEDS: VANCOCIN 530 MG IV ×2 (05:41→18:19)
[2025-04-01 07:40] LABS: Glucose - Point of Care 187 mg/dl (70-99)
--- NOTE | 2025-04-01 07:52 | PN.DE.MGMTRT ---
Insulin Management
- -
04/01/2025: Diabetes Management Consult Follow up
Patient admitted 03/29 with R foot ulcer. PMH: HTN. New onset T2DM this admission. Noted for Hyperglycemia on admission, glucose 416 Venous, A1C 10.6%, Cr 0.7, eGFR >60. He has no PCP and hasn't been to a doctor in a 5+ years. MRI shows extensive
8x2x3 cm abscess but no indication for osteomyelitis. 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 Reports >100 lbs weight loss 6-8 years ago when he was told he was
pre-diabetic. He has since tried to remain active and 'eat clean'
Reports a significant family hx of T2DM, his Mom has diabetes and is on insulin.
POD 1 I & D R foot ulcer. Pt awake, alert, sitting up in bed, offers no complaints, able to discuss diabetes care plan. Yesterday, patient was NPO most of day in anticipation of OR. Received hs lantus 15 units. Fasting glucose this AM 187, diet
has been ordered, patient to start 5 units novolog AC with moderate corrective insulin.
Pt will be seen by the diabetes Nurse Educator for monitor and insulin instructions.
Discussed with Nurse.
Will follow
Diabetes History
- -
Type of Diabetes: 2 requiring insulin
Pre-Admission Diabetes Regimen
Lab Results
Hemoglobin A1c 10.6 % (4.0-5.6) H 03/30/25 06:03
Insulin Pump Settings
IP Diabetes Regimen
03/31/25 03/31/25 03/31/25
11:49 16:35 20:16
POC Glucose 253 H 154 H 159 H
03/31/25 04/01/25
21:29 07:38
POC Glucose 147 H 187 H
Meal type: Lunch
Meal type: Breakfast
Meal type: Breakfast
Amount consumed: 100%
Amount consumed: 100%
Amount consumed: 100%
Patient Education
[2025-04-01] MEDS: HEPARIN 5000 UNITS SC ×2 (08:04→20:59)
[2025-04-01] MEDS: ZESTRIL 10 MG PO (08:04)
[2025-04-01] MEDS: NOVOLOG FLEXPEN SC ×2 (08:05→08:09)
[2025-04-01] MEDS: NOVOLOG FLEXPEN-MODERATE RESISTANCE 1 UNITS SC (08:06)
[2025-04-01 08:07] LABS: Hematocrit 42.0 % (39.0-52.0); Hemoglobin 14.4 g/dL (13.0-18.0); Mean Corp Hgb Conc. 34.3 g/dL (33.0-37.0); Mean Corpuscular Volume 82.5 fL (80.0-94.0); Nucleated Red Blood Cells % 0 % (-); Platelet Count 209 10^3/uL (130-400); Red Cell Dist. Width 12.2 % (11.5-14.5)
[2025-04-01 08:37] LABS: ALT (SGPT) 14 U/L (0-50); AST (SGOT) 14 U/L (17-59); Albumin 3.6 g/dl (3.5-5.0); Alkaline Phosphatase 91 U/L (38-126); Blood Urea Nitrogen 13 mg/dl (9-20); Calcium 8.9 mg/dl (8.4-10.2); Carbon Dioxide 29 mmol/L (22-30); Chloride 100 mmol/L (98-107); Estimated Creatinine Clearance > 125 ml/min; Glucose 186 mg/dl (70-99); Potassium 4.4 mmol/L (3.5-5.1); Sodium 135 mmol/L (135-145); Total Protein 6.8 g/dl (6.3-8.2); eGFR > 60.00
--- NOTE | 2025-04-01 08:44 | PHA.VAN.FU ---
Vancomycin Assessment / Plan
- Assessment
Renal Function: Stable
WBC's are: WNL
In the past 24 hrs, patient has been: Afebrile
Concomitant Antimicrobials: Zosyn
- Monitoring Plan
Peak Level: 04/01/25 @2130
Trough Level: 04/02/25 @0530
- Follow Up
Pharmacy will continue to follow.
Vancomycin Follow UP
- -
Patient Age: 54
Patient Sex: Male
Vancomycin Day #: 4
Indication: Diabetic Foot
Requesting Provider: MAXIMILIANO Andersen
Pertinent Antimicrobial Allergies:
NKA
Height / Weight:
Height 6 ft 8 in
Actual Weight 90.855 kg
Pertinent Past Medical History: DM2
- Vital Signs / Lab Results
Temp Pulse Resp BP Pulse Ox
99.2 F 88 16 144/87 100
04/01/25 07:55 04/01/25 07:55 04/01/25 07:55 04/01/25 07:55 04/01/25 07:55
Lab Results - Hematology
03/29/25 03/30/25 03/31/25
20:45 06:03 05:51
WBC 9.8 8.7 7.2
04/01/25
07:49
WBC 8.5
Lab Results - Chemistry
03/29/25 03/30/25 03/31/25
20:45 06:03 05:51
BUN 18 15 12
Creatinine 0.7 0.7 0.7
Estimated Creat Clear > 125 > 125
Albumin 4.7 3.7 3.8
04/01/25
07:49
BUN 13
Creatinine 0.7
Estimated Creat Clear > 125
Albumin 3.6
Microbiology Results
03/29/25 22:35 Blood Culture - Preliminary
Blood/Venous No Growth in 48 hours- Final report to follow
03/29/25 20:45 Blood Culture - Preliminary
Blood/Venous No Growth in 48 hours- Final report to follow
03/29/25 22:35 Wound Culture - Preliminary
Foot - Right Gram Stain - Preliminary
03/29/25 23:15 MRSA Screen - Final
Nose No Methicillin Resistant Staphylococcus aureus isolated.
Therapeutic Drug Monitoring
Vancomycin Peak 18.1 ug/ml (18-26) 03/31/25 00:59
Vancomycin Trough 13.0 ug/ml (5-20) 03/31/25 05:51
--- NOTE | 2025-04-01 10:31 | W.PN.HOSP.TC ---
Today's Communication/Plan
-
ID evaluation; continue Abx and follow operative cultures
follow post-op podiatry recs, wound care/dressing changes and therapy evals
follow EQUINE VET DM management
Assessment / Plan
Assessment / Plan
Assessment:
Right diabetic foot infection
- Wound culture collected in ER
- MRI: Large draining wound/abscess along the plantar medial subcutaneous tissues of the hindfoot/midfoot measuring approximately 8.2 x 2.8 x 3.0 cm. Adjacent underlying soft tissue edema. Adjacent reactive tenosynovitis of the posterior tibialis
and flexor digitorum longus tendons. Additional visualized tendons and ligaments are grossly intact.
- JT/TBI: normal
- Podiatry following; s/p I&D 04/01
- operative cultures pending
- continue Vanc/Zosyn; ID consulted
Right great toe proximal phalanx subacute fracture
- Presumably patient may have injured toe and would not have sensed it with diabetic neuropathy
- Podiatry following
New onset DM 2
- A1c is 10.6%
- started on Lantus 15 units HS
- started on Aspart 5 units AC
- diabetes EQUINE VET following
- diabetes educators consulted
- patient will benefit from testing meter/supplies
Essential HTN with urgency
- continue Lisinopril 10mg daily
Nicotine abuse
Marijuana use
- three-quarter pack smoker a day
- cessation advised
- nicotine patch 21 mg
- smokes marijuana flower or edibles nightly
DVT ppx: SC heparin
Code: Full
Anticipated Discharge: > 48 hours
Subjective/Interval History
-
Date of Service: April 01, 2025
resting comfortably, pain controlled
Objective Data
-
Labs:
Laboratory Results
04/01/25
07:49
WBC 8.5
Hgb 14.4
Hct 42.0
Plt Count 209
Sodium 135
Potassium 4.4
Chloride 100
Carbon Dioxide 29
BUN 13
Creatinine 0.7
Glucose 186 H
Calcium 8.9
Total Bilirubin 0.9
AST 14 L
ALT 14
Alkaline Phosphatase 91
Vital Signs:
Vital Signs
Temp Pulse Resp BP Pulse Ox
99.2 F 88 16 144/87 100
04/01/25 07:55 04/01/25 07:55 04/01/25 07:55 04/01/25 07:55 04/01/25 07:55
I&O
03/31/25 04/01/25 04/02/25
06:59 06:59 06:59
Intake Total 1160 / 1160 2034 / 2034
Output Total 3820 / 3820 1600 / 1600
Balance -2660 / -2660 435 / 435
Physical Exam
-
General: No Apparent Distress
HEENT: Normocephalic and Atraumatic
Respiratory: Negative Wheezes
Cardiac: Regular Rhythm and S1/S2
GI: Soft and Nontender
Skin: Other (R foot in surgical dressing)
Neuro: AO x 3
Hematologic / Lymphatic: No Lymphadenopathy
Psych: Calm
Data Reviewed
-
Total Time Spent with Patient (in minutes): 42
Labs: Labs Reviewed by me
[2025-04-01] MEDS: ZOFRAN 4 MG IV (10:45)
--- NOTE | 2025-04-01 10:48 | CON.ID ---
Consultation
-
Date/Time Consultation Requested: 04/01/25 8:20
Date/Time Consultation Performed: 04/01/25 10:49
Requesting Provider: Dr Maradiaga
Performing Provider: Dr Burris
Reason for Consultation: diabetic foot infection
Chief Complaint / Past History
Chief Complaint
wound of the right hind/midfoot
History of Present Illness
Mr Jaswinder Queen is a 54 year old male with new onsest DM2 (a1c 10.6) who presented here on 03/29 for right foot pain for about 2 weeks. Symptoms began with a 'black speck' in the instep which he attempted to dig out producing an open wound that
was painful. He was seen at urgent care and prescribed bactrim and cephalexin without improvement. He also accidentally dropped a log onto his right great toe which abraded the toe. No fevers or chills. He denies fever, chills, chest pain,
potation's, cough, shortness breath, abdominal pain, nausea, vomiting, diarrhea, urinary symptoms.
Since arrival here he has been afebrile, bp stable, wbc initially 8.7, hgb 13.9, plt 280, no initial left shift, na 127, cr 0.7, a1c 10.6, t bili 0.6, ast 14, alt 15, alk phos 104, wound cultures x2 are in progress from the ER and from the OR, an
MRI of the right foot showed: large SQ abscess with underlying reactive tenosynovitis with intact tendons, no evidence of osteomyelitis, ABIs were done and read as normal, he underwent debridement of the foot abscess and did not have any exposed
bone, he is recommended to be nonweight bearing, ID is consulted for assistance with management.
Past History
Additional Past Medical History:
smoker
h/o obesity
Additional Past Surgical History:
ACL repair x 3
Fusion T12-L1, L2-L3
Thyroid duct cyst removal
Allergy History:
No Known Allergies Allergy (Unverified 05/28/23 16:24)
Medications Reviewed: Yes
Social History
Tobacco: Smoker
Alcohol: None
Drug: Marijuana
Family History
Family History: Not Pertinent
Review of Systems
Review of Systems
General: Negative Fever or Chills
A 12 point ROS was completed and negative except as noted above
Vital Signs
Temp Pulse Resp BP Pulse Ox
99.2 F 88 16 144/87 100
04/01/25 07:55 04/01/25 07:55 04/01/25 07:55 04/01/25 07:55 04/01/25 07:55
Physical Exam
Physical Exam
Constitutional: No Acute Distress
Cardiovascular: Regular Rate and S1/S2; Negative Murmur or Rub
Pulmonary: Clear and Symmetric; Negative Wheezes, Rales or Rhonchi
Gastrointestinal: Soft, Non Tender, Non Distended and Normal Bowel Sounds
Skin: Warm and Dry; Negative Rash or Jaundice
Wound: Other (dressing clean, dry, intact)
Lab / Diagnostic Study Results
04/01/25 07:49
04/01/25 07:49
Abs Immat Gran (auto) 0.0 10^3/uL (0-0.05) 04/01/25 07:49
Absolute Neuts (auto) 7.4 10^3/uL (1.4-6.5) H 04/01/25 07:49
Absolute Lymphs (auto) 0.6 10^3/uL (1.2-3.4) L 04/01/25 07:49
Absolute Monos (auto) 0.3 10^3/uL (0.1-0.6) 04/01/25 07:49
Absolute Basos (auto) 0.0 10^3/uL (0-0.2) 04/01/25 07:49
Immature Gran % 0.5 % (0-0.5) 04/01/25 07:49
Neutrophils % 86.7 % (42.2-75.2) H 04/01/25 07:49
Lymphocytes % 6.6 % (20.5-51.1) L 04/01/25 07:49
Monocytes % 3.7 % (1.7-9.3) 04/01/25 07:49
Eosinophils % 2.0 % (0-6) 04/01/25 07:49
Basophils % 0.5 % (0-2) 04/01/25 07:49
ESR 30 mm/hour (0-20) H 03/29/25 20:45
C-Reactive Protein 18.00 mg/L (0.0-10.00) H 03/29/25 20:45
Microbiology Results
Micro:
03/31/25 19:39 Wound Culture - Pending
Foot - Right Gram Stain - Pending
03/31/25 19:39 Anaerobic Culture - Pending
Foot - Right
03/29/25 22:35 Blood Culture - Preliminary
Blood/Venous No Growth in 48 hours- Final report to follow
03/29/25 20:45 Blood Culture - Preliminary
Blood/Venous No Growth in 48 hours- Final report to follow
03/29/25 22:35 Wound Culture - Preliminary
Foot - Right Gram Stain - Preliminary
03/29/25 23:15 MRSA Screen - Final
Nose No Methicillin Resistant Staphylococcus aureus isolated.
Assessment / Plan
Moderate Diabetic Foot Infection
DM2 new
HTN new
- would like to follow up the 03/31 abscess culture another 1-2 days prior to deescalating to a pathogen directed regimen
- continue vancomycin and zosyn at this time
- pleased to read no evidence of osteomyelitis, will plan a course of oral therapy
- we discussed importance of control of DM2; smoking cessation would also assist with wound healing
[2025-04-01 11:05] LABS: Glucose - Point of Care 206 mg/dl (70-99)
--- NOTE | 2025-04-01 12:57 | W.PN.POD ---
Today's Communication
Today's Communication
Packing removed and clinical improvement in appearance of wound. Edema and cellulitis receding
Await intraoperative culture results
Assessment / Plan
-
Diabetic infection right foot
-One day status post I and D abscess
Intra operative wound cultures taken
-Xray and MRI show comminuted fracture of the proximal phalanx but no bone involvement. Single pocket abscess on MRI with tenosynovitis of posterior tibial and flexor digitorum longus tendons
-JT/TBI WNL
-Light packing applied. Continue NWB.
-Appreciate ID input
New onset diabetes mellitus
-A1c 10.6%
-consumer educator consulted
HTN
Nicotine abuse
Marijuana use
Subjective
Objective
Temp Pulse Resp BP Pulse Ox
99.4 F 91 18 139/75 99
04/01/25 11:14 04/01/25 11:14 04/01/25 11:14 04/01/25 11:14 04/01/25 11:14
04/01/25 07:49
04/01/25 07:49
Vital Signs and Lab results were reviewed.
Physical Exam
Physical Exam
Dressing clean, dry and in tact. Packing removed with no malodor and no further tissue necrosis. Skin edges of ulcer and incision edges also stable. No purulent drainage present
[2025-04-01] MEDS: NOVOLOG FLEXPEN 5 UNITS SC ×2 (13:01→18:20)
[2025-04-01] MEDS: NOVOLOG FLEXPEN-MODERATE RESISTANCE 3 UNITS SC (13:02)
--- NOTE | 2025-04-01 13:11 | PN.CDI ---
CDI
- -
CDI:
Physician Documentation Request
Admit Date: 03/29/25 23:20
Dear Doctor Kalpana,
Podiatry consult note states 'General edema with erythema in the right midfoot but no ascending cellulitis present'
04/01 progress note states 'Edema and cellulitis receding'
Please clarify:
____ - Cellulitis is a valid diagnosis
____ - Cellulitis is not a valid diagnosis for this patient
____ - Other
Use of terms such as suspected, likely, concern for, or probable are acceptable for a diagnosis that is being evaluated, monitored or treated as if it exists and can be coded in the inpatient setting, when documented at the time of discharge.
Thank you,
Morenita Nath RN, BSN
CDI Specialist
tiger text
Please use your independent medical judgment in providing your response.
[2025-04-01] MEDS: TYLENOL 650 MG PO (15:15)
--- NOTE | 2025-04-01 15:59 | PTCARENOTE ---
04/01/2025 DIABETES EDUCATION CONSULTATION
I met with patient to review diabetes management, is newly diagnosed with an A1c of 10.6. Currently inpatient with a right foot wound.
I educated on physiology of T2D, organ damage, managing with medications, monitoring BG, nutrition, activity, sleep, smoking cessation, and managing stress. I reinforced signs of hyperglycemia, hypoglycemia and hypoglycemia protocol; BS parameters
and recommended HbA1c goals, glucometer and CGM instructions, glucose tracker, medic alert bracelet and outpatient DSME program. Written material provided.
I provided patient with a [employer] glucometer sample kit. He declined instructions on use, states he knows how to use a glucometer. He states his mother and brother had DM, so he is familiar.
I educated and demonstrated on insulin injection technique, timing, and storage. Discussed long and short acting insulin; onset/peak/duration, and encouraged her to administer his own injections with RN supervision while admitted. Discussed normal
target glucose ranges and a monitoring schedule 15 minutes before each meal when prescribed Novolog, and before bed. Discussed with RN to help him administer insulin during inpatient stay.
Encouraged patient to follow up with a PCP for post d/c appointment and to monitor medication and blood glucose levels. He does not have a PCP but was informed about [facility]. Provided list of endocrinologists if desired,
to contact insurance company to verify in network status. Discussed with patient that Tg has OTC glucometer, test strips, and lancets without a prescription. Patient verbalized understanding.
[2025-04-01 16:40] LABS: Glucose - Point of Care 144 mg/dl (70-99)
[2025-04-01] MEDS: NOVOLOG FLEXPEN-MODERATE RESISTANCE SC (16:43)
[2025-04-01] MEDS: LANTUS 0.15 UNITS SC (22:03)
[2025-04-01 22:05] LABS: Glucose - Point of Care 147 mg/dl (70-99)
[2025-04-02] MEDS: ZOSYN 50 IV ×2 (04:19→09:54)
[2025-04-02] MEDS: VANCOCIN 530 MG IV (05:48)
[2025-04-02 06:22] LABS: Hematocrit 39.9 % (39.0-52.0); Hemoglobin 13.7 g/dL (13.0-18.0); Mean Corp Hgb Conc. 34.3 g/dL (33.0-37.0); Mean Corpuscular Volume 81.6 fL (80.0-94.0); Nucleated Red Blood Cells % 0 % (-); Platelet Count 179 10^3/uL (130-400); Red Cell Dist. Width 12.3 % (11.5-14.5)
[2025-04-02 06:46] LABS: ALT (SGPT) 24 U/L (0-50); AST (SGOT) 32 U/L (17-59); Albumin 3.6 g/dl (3.5-5.0); Alkaline Phosphatase 81 U/L (38-126); Calcium 8.9 mg/dl (8.4-10.2); Carbon Dioxide 30 mmol/L (22-30); Chloride 101 mmol/L (98-107); Estimated Creatinine Clearance 122 ml/min; Glucose 129 mg/dl (70-99); Potassium 4.4 mmol/L (3.5-5.1); Sodium 135 mmol/L (135-145); Total Protein 6.8 g/dl (6.3-8.2); eGFR > 60.00
[2025-04-02 06:56] LABS: Blood Urea Nitrogen 14 mg/dl (9-20)
[2025-04-02 07:24] VITALS: BP 122/77
--- NOTE | 2025-04-02 07:50 | PN.DE.MGMTRT ---
Insulin Management
- -
04/02/2025: Diabetes Management Follow up
Patient admitted 03/29 with R foot ulcer. PMH: HTN. New onset T2DM this admission. Noted for Hyperglycemia on admission, glucose 416 Venous, A1C 10.6%, Cr 0.7, eGFR >60. He has no PCP and hasn't been to a doctor in a 5+ years. MRI shows extensive
8x2x3 cm abscess but no indication for osteomyelitis. 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 Reports >100 lbs weight loss 6-8 years ago when he was told he was
pre-diabetic. He has since tried to remain active and 'eat clean'
Reports a significant family hx of T2DM, his Mom has diabetes and is on insulin.
Pt awake, alert, sitting up in chair, offers no complaints, able to discuss diabetes care plan.
POD # 2 s/p I & D of Right foot ulcer. Received HS Lantus 15 units. Fasting glucose this AM 129 V. Will cont Lantus 15 units
Premeal range yesterday 144 to 206. Will make no changes to current regimen: NovoLog AC 5 units with moderate corrective insulin.
Pt will be seen by the diabetes Nurse Educator for monitor and insulin instructions.
Discussed with Nurse. Will cont to follow
Diabetes History
- -
Type of Diabetes: 2 requiring insulin
Pre-Admission Diabetes Regimen
04/01/25 04/02/25
07:49 05:48
Creatinine 0.7 0.9
Lab Results
Hemoglobin A1c 10.6 % (4.0-5.6) H 03/30/25 06:03
Insulin Pump Settings
IP Diabetes Regimen
04/01/25 04/01/25 04/01/25
07:49 11:04 16:39
Glucose 186 H
POC Glucose 206 H 144 H
04/01/25 04/02/25
22:03 05:48
Glucose 129 H
POC Glucose 147 H
Patient Education
[2025-04-02 08:21] LABS: Glucose - Point of Care 156 mg/dl (70-99)
[2025-04-02] MEDS: HEPARIN 5000 UNITS SC (08:24)
[2025-04-02] MEDS: ZESTRIL 10 MG PO (08:24)
--- NOTE | 2025-04-02 08:27 | PHA.VAN.FU ---
Vancomycin Assessment / Plan
- Assessment
Renal Function: SCR Increasing (0.9 from 0.7)
WBC's are: WNL
In the past 24 hrs, patient has been: Febrile (Tmax 101F 04/01/25 @1503)
Concomitant Antimicrobials: Zosyn
- Assessment - Therapeutic Drug Monitoring
Extrapolated Cmax (mcg/mL): 30.8 mcg/mL
Peak level was drawn: Appropriately
Extrapolated Cmin (mcg/mL): 9.3 mcg/mL
Trough Drawn: Appropriately
Levels were drawn: At steady state
Calculated AUC (mcg*h/mL): 438 mcg*h/mL
Calculated ke: 0.1137
Calculated half life (H): 6.1
Calculated Vd (L): 60.16
Calculated Vanc CL (ml/min): 113.98
- Dosing Plan
Continue: 1500MG Q12H
- Monitoring Plan
No level(s) ordered at this time: Re-check levels weekly or if changes in renal function
- Follow Up
Pharmacy will continue to follow.
Vancomycin Follow UP
- -
Patient Age: 54
Patient Sex: Male
Vancomycin Day #: 5
Indication: Diabetic Foot
Requesting Provider: MAXIMILIANO Andersen
Pertinent Antimicrobial Allergies:
NKA
Height / Weight:
Height 6 ft 8 in
Actual Weight 90.855 kg
Pertinent Past Medical History: DM2
- Vital Signs / Lab Results
Temp Pulse Resp BP Pulse Ox
97.8 F 75 17 122/77 94
04/02/25 07:24 04/02/25 07:24 04/02/25 07:24 04/02/25 07:24 04/02/25 07:24
Lab Results - Hematology
03/31/25 04/01/25 04/02/25
05:51 07:49 05:48
WBC 7.2 8.5 4.8
Lab Results - Chemistry
03/31/25 04/01/25 04/02/25
05:51 07:49 05:48
BUN 12 13 14
Creatinine 0.7 0.7 0.9
Estimated Creat Clear > 125 > 125 122
Albumin 3.8 3.6 3.6
Microbiology Results
03/29/25 22:35 Blood Culture - Preliminary
Blood/Venous No Growth in 72 hours- Final report to follow
03/29/25 20:45 Blood Culture - Preliminary
Blood/Venous No Growth in 72 hours- Final report to follow
03/31/25 19:39 Gram Stain - Preliminary
Foot - Right
03/29/25 22:35 Wound Culture - Preliminary
Foot - Right Enterococcus species
Streptococcus agalactiae
Gram Stain - Preliminary
03/29/25 23:15 MRSA Screen - Final
Nose No Methicillin Resistant Staphylococcus aureus isolated.
Therapeutic Drug Monitoring
Vancomycin Peak 23.8 ug/ml (18-26) 04/01/25 22:05
Vancomycin Trough 9.9 ug/ml (5-20) 04/02/25 05:48
[2025-04-02] MEDS: NOVOLOG FLEXPEN-MODERATE RESISTANCE 1 UNITS SC ×2 (08:30→13:29)
[2025-04-02] MEDS: NOVOLOG FLEXPEN 5 UNITS SC ×3 (08:31→18:00)
--- NOTE | 2025-04-02 10:08 | W.PN.ID1 ---
Date of Service
Date of Service: April 02, 2025
Today's Communication
- currently plan two weeks of augmentin 03/29-04/11
Assessment / Plan
Moderate Diabetic Foot Infection
DM2 new
HTN new
- pending enterococcus susceptibilities, patient is anxious for discharge
- will follow up and adjust the regimen PRN
- currently plan two weeks of augmentin 03/29-04/11
- pleased to read no evidence of osteomyelitis
Chief Complaint
-: Fever and Other (diabetic foot infection)
Subjective / Review of Systems
febrile overnight
bp stable
Vital Signs / Physical Exam
Vital Signs
Vital Signs
Temp Pulse Resp BP Pulse Ox
97.8 F 75 17 122/77 94
04/02/25 07:24 04/02/25 07:24 04/02/25 07:24 04/02/25 07:24 04/02/25 07:24
Physical Exam
Constitutional: No Acute Distress
Cardiovascular: Regular Rate and S1/S2; Negative Murmur or Rub
Pulmonary: Clear and Symmetric; Negative Wheezes or Rales
Gastrointestinal: Soft, Non Tender, Non Distended and Normal Bowel Sounds
Skin: Warm and Dry; Negative Rash or Jaundice
Objective Data
Lab Data
Lab Results
04/02/25 05:48
04/02/25 05:48
ESR 30 mm/hour (0-20) H 03/29/25 20:45
Estimated Creat Clear 122 ml/min 04/02/25 05:48
Total Bilirubin 0.8 mg/dl (0.2-1.3) 04/02/25 05:48
AST 32 U/L (17-59) 04/02/25 05:48
ALT 24 U/L (0-50) 04/02/25 05:48
Alkaline Phosphatase 81 U/L (38-126) 04/02/25 05:48
C-Reactive Protein 18.00 mg/L (0.0-10.00) H 03/29/25 20:45
Most recent labs reviewed.
Micro Results:
03/31/25 19:39 Wound Culture - Preliminary
Foot - Right Enterococcus species
Gram Stain - Preliminary
03/29/25 22:35 Blood Culture - Preliminary
Blood/Venous No Growth in 72 hours- Final report to follow
03/29/25 20:45 Blood Culture - Preliminary
Blood/Venous No Growth in 72 hours- Final report to follow
03/29/25 22:35 Wound Culture - Preliminary
Foot - Right Enterococcus species
Streptococcus agalactiae
Gram Stain - Preliminary
03/31/25 19:39 Anaerobic Culture - Pending
Foot - Right
03/29/25 23:15 MRSA Screen - Final
Nose No Methicillin Resistant Staphylococcus aureus isolated.
Care Review
Plan reviewed with: Physician (Dr Hiren ding)
[2025-04-02 11:37] VITALS: BP 120/75; PULSE 72; O2SAT 99
[2025-04-02 11:37] LABS: Glucose - Point of Care 181 mg/dl (70-99)
--- NOTE | 2025-04-02 11:58 | W.PN.HOSP.TC ---
Today's Communication/Plan
-
dc to home/VN
Assessment / Plan
Assessment / Plan
Assessment:
Right diabetic foot infection
- Wound culture collected in ER
- MRI: Large draining wound/abscess along the plantar medial subcutaneous tissues of the hindfoot/midfoot measuring approximately 8.2 x 2.8 x 3.0 cm. Adjacent underlying soft tissue edema. Adjacent reactive tenosynovitis of the posterior tibialis
and flexor digitorum longus tendons. Additional visualized tendons and ligaments are grossly intact.
- JT/TBI: normal
- Podiatry following; s/p I&D 04/01
- operative cultures with enterococcus
- Augmentin until 04/11 per ID
Right great toe proximal phalanx subacute fracture
- Presumably patient may have injured toe and would not have sensed it with diabetic neuropathy
- Podiatry following
New onset DM 2
- A1c is 10.6%
- started on Lantus 15 units HS
- started on Aspart 5 units AC
- diabetes DRY ROOM ATTENDANT following
- diabetes educators consulted; machine given
Essential HTN with urgency
- continue Lisinopril 10mg daily
Nicotine abuse
Marijuana use
- three-quarter pack smoker a day
- cessation advised
- nicotine patch 21 mg
- smokes marijuana flower or edibles nightly
DVT ppx: SC heparin
Code: Full
More than 30 minutes spent in discharge including
Final examination of the patient
Summarizing hospital stay
Instructions for continuing care to all relevant caregivers
Preparation of discharge records, prescriptions, and referral forms
Total time spent (in minutes):41
Anticipated Discharge: Today
Subjective/Interval History
-
Date of Service: April 02, 2025
pain controlled, denies any fever/chills
Objective Data
-
Labs:
Laboratory Results
04/02/25
05:48
WBC 4.8
Hgb 13.7
Hct 39.9
Plt Count 179
Sodium 135
Potassium 4.4
Chloride 101
Carbon Dioxide 30
BUN 14
Creatinine 0.9
Glucose 129 H
Calcium 8.9
Total Bilirubin 0.8
AST 32
ALT 24
Alkaline Phosphatase 81
Vital Signs:
Vital Signs
Temp Pulse Resp BP Pulse Ox
97.8 F 75 17 122/77 94
04/02/25 07:24 04/02/25 07:24 04/02/25 07:24 04/02/25 07:24 04/02/25 07:24
I&O
04/01/25 04/02/25 04/03/25
06:59 06:59 06:59
Intake Total 5 / 2034 580 / 580 50 / 50
Output Total 1600 / 1600 1400 / 1400
Balance 435 / 435 -820 / -820 50 / 50
Physical Exam
-
General: No Apparent Distress
HEENT: Normocephalic and Atraumatic
Respiratory: Negative Wheezes
Cardiac: Regular Rhythm and S1/S2
GI: Soft and Nontender
Skin: Other (R foot in surgical dressing)
Neuro: AO x 3
Psych: Calm
Data Reviewed
-
Total Time Spent with Patient (in minutes): 42
Labs: Labs Reviewed by me
[2025-04-02] MEDS: AUGMENTIN 875 MG/125 MG 1 TABLET PO ×2 (13:29→19:14)
--- NOTE | 2025-04-02 13:34 | W.DCSUMMARY ---
Discharge Summary
Discharge Data
Date of Admission: 03/29/25
Date of Discharge: 04/02/25
-
Pending Results: No
Hospital Course
54 y/o M presented to ER on 03/29 with foot pain and found to have Right foot diabetic wound and newly diagnosed diabetes along with hypertension. An MRI confirmed an abscess and Podiatry took patient to OR on 03/31 for Incision and drainage. No
evidence of osteomyelitis on MRI or in operating room. ID was consulted and recommended 2 weeks of Augmentin for enterococcus growth in cultures. Patient was started on Lisinopril for BP control. Also started on insulin with education per diabetes
team. He was cleared for home discharge on 04/02.
Discharge Plan
-
Patient Disposition: Home with Home Care
Discharge Diagnosis/Procedures: diabetic foot ulcer/abscess with incision and drainage 03/31, new diabetes diagnosis
Condition: Fair
Diet: Diabetic, Carb Controlled
Activity: As tolerated
Additional Activity: RLE NWB
Bathing Restrictions: None
Other Services: VN
Activity Restrictions/Additional Instructions:
Wound Care Instructions
keep coccyx clean and dry; barrier ointment as needed for protection.
R plantar foot-as per judicial law clerk's instructions.
Activity restrictions and weight bear restrictions as per judicial law clerk's instructions.
L great and 2nd dry toe ulcers-keep clean and dry. Local care as per judicial law clerk's instructions.
Elevate heels off bed with pillow/s
Pressure redistributing chair cushion (i.e. Air chair cushion)
Follow up with judicial law clerk Dr. Lilliana Acuna.
Follow up at wound care center if needed, call for an appointment.
Referrals:
UNKNOWN - PT DOES,NOT KNOW [Family Provider]
Prescriptions:
New
acetaminophen 325 mg Tablet
650 mg PO Q4HPRN PRN (Reason: mild pain/ISRA[place]/temp> 100.4F) Qty: 100 0RF
lisinopril 10 mg Tablet
10 mg PO DAILY Qty: 30 0RF
amoxicillin-pot clavulanate 875-125 mg Tablet
1 tab PO Q12 Qty: 20 0RF
oxycodone 5 mg Tablet
5 mg PO Q4HPRN PRN (Reason: moderate pain) Qty: 10 0RF
(DME) Contour Next Test Strips Strip
Qty: 200 1RF
Rx Instructions:
test AC and HS. Dx code: E11.9
insulin aspart U-100 [Novolog FlexPen U-100 Insulin] 100 unit/mL (3 mL) Insulin Pen
5 unit SC AC Qty: 5 1RF
insulin glargine [Lantus Solostar U-100 Insulin] 100 unit/mL (3 mL) Insulin Pen
15 unit SC HS Qty: 5 1RF
(DME) lancets [Color Lancets] 21 gauge Misc
Qty: 200 1RF
Rx Instructions:
test AC and HS. E11.9
(DME) pen needle, diabetic [Pen Needle] 29 gauge x 1/2' needle
See Rx Instructions .Route Qty: 100 1RF
Rx Instructions:
E11.9 diabetes.
Discontinued
sulfamethoxazole-trimethoprim [Bactrim DS] 800-160 mg Tablet
1 tab PO Q12H
cephalexin 500 mg Capsule
500 mg PO QID
Discharge Orders:
Discharge Patient (As Directed); Ordered 04/02/25
Ordered By: Luz Elena Maradiaga
Discharge Date and Time
Print Language: MALTESE
--- NOTE | 2025-04-02 14:18 | CM ---
Addendum entered by Dia Salinas RN 04/02/25 16:45:
Multiple VN agencies called . None can accept his insurance.TT [employer] and [facility] .
LM with patient and spoke with his SO Sandra . She said she will bring him into Wound care center at and [employer] [employer].
RN notified of plan of care. Review wound care with pt and SO.
[employer] to see this PM before dc.
PLAN Home follow up with wound care center and [employer] [employer]
Addendum entered by Dia Salinas RN 04/02/25 15:24:
PLAN Change [facility] does not accept his insurance.
Referral placed for [facility] .
Spoke with Dia at [facility] in [place] they are checking if they accept patients insurance.
PLAN waiting for [facility] acceptance
Original Note:
MD entered order for discharge.
SPoke with patient he said he was read for discharge.
Pt requested VN for wound care.
Spoke with Roxann at [facility] . They cover patients address. Care port referral placed.
Pt has not had an appt with PCP yet.
Call made to Dr Acuna office [phone] to check if she will sign home care orders.
His SO Sandra will drive him home.
PLAN Home with [facility] fax [phone]
[2025-04-02 15:10] VITALS: BP 114/75
[2025-04-02 17:04] LABS: Glucose - Point of Care 149 mg/dl (70-99)
[2025-04-02] MEDS: NOVOLOG FLEXPEN-MODERATE RESISTANCE SC (17:23)
--- NOTE | 2025-04-02 17:52 | W.PN.POD ---
Today's Communication
Today's Communication
ok for discharge with visiting nursing for wound care.
Assessment / Plan
-
Diabetic infection right foot
-Status post I and D abscess
Intra operative wound culture positive for Enterococcus
Appreciate ID input. Discharge with course of Augmentin
-Xray and MRI show comminuted fracture of the proximal phalanx but no bone involvement. Single pocket abscess on MRI with tenosynovitis of posterior tibial and flexor digitorum longus tendons
-JT/TBI WNL
-Dressing changed today with no malodor, no soft tissue necrosis and stable wound edges.
Orders for daily wound care given. Must keep area dry and covered when bathing and showering
Must remain complete non weight bearing with knee scooter, walker or crutches
-Ok for discharge and return to my office in one week for follow up
New onset diabetes mellitus with peripheral neuropathy
-A1c 10.6%
-ammunition storage superintendent consulted
Fracture right distal phalanx
-Will follow
HTN
Nicotine abuse
Marijuana use
Subjective
Objective
Temp Pulse Resp BP Pulse Ox
98.3 F 73 17 114/75 97
04/02/25 15:10 04/02/25 15:10 04/02/25 15:10 04/02/25 15:10 04/02/25 15:10
04/02/25 05:48
04/02/25 05:48
Vital Signs and Lab results were reviewed.
[2025-04-02 19:15] VITALS: BP 119/73
[2025-04-02 19:37] LABS: Glucose - Point of Care 251 mg/dl (70-99)
[2025-04-02] MEDS: LANTUS 0.15 UNITS SC (19:41)
--- NOTE | 2025-04-02 19:50 | PTCARENOTE ---
Administration of Lantus scheduled for 10:00pm administered prior to departure secondary to patients pharmacy being closed.Preadministration glucose check and vital signs performed prior to departure.
== END 2025-04-02 20:15 | disposition home health service (06) | DRG 623 ==
LOC: 3 WEST ACU 23:20
PROVIDERS: Clinical Nurse Specialist Family Health; Hospitalist; ADMITTING PHYSICIAN Hospitalist; ATTENDING PHYSICIAN Internal Medicine; CONSULT PHYSICIAN Podiatrist Foot & Ankle Surgery; EMERGENCY PHYSICIAN Emergency Medicine; OTHER PHYSICIAN Student in an Organized Health Care Education/Training Program
PROC: 0JBQ0ZZ Excision of Right Foot Subcutaneous Tissue and Fascia, Open Approach (ICD-10-PCS; 2025-03-31)
DX: E11.621 Type 2 diabetes mellitus with foot ulcer (principal); I96 Gangrene, not elsewhere classified; L02.611 Cutaneous abscess of right foot; M65.871 Other synovitis and tenosynovitis, right ankle and foot; L97.519 Non-pressure chronic ulcer of other part of right foot with unspecified severity; E11.65 Type 2 diabetes mellitus with hyperglycemia; E11.40 Type 2 diabetes mellitus with diabetic neuropathy, unspecified; S92.411A Displaced fracture of proximal phalanx of right great toe, initial encounter for closed fracture; I10 Essential (primary) hypertension; X58.XXXA Exposure to other specified factors, initial encounter; I16.0 Hypertensive urgency; F12.90 Cannabis use, unspecified, uncomplicated; F17.210 Nicotine dependence, cigarettes, uncomplicated; E11.42 Type 2 diabetes mellitus with diabetic polyneuropathy; Z79.899 Other long term (current) drug therapy; Z79.4 Long term (current) use of insulin
CPT/HCPCS: 73630; 73720; 80053; 80061; 80202; 82962; 83036; 85025; 85652; 86140; 87040; 87070; 87075; 87077; 87147; 87186; 87205; 93922; 96365; 96372; 96375; 97163; 97166; 97530; 99284; A9575

== ENCOUNTER 2025-04-04 18:06 | Emergency (ER) | payer OTHER, SELFPAY ==
[2025-04-04 18:28] VITALS: BP 121/77
--- NOTE | 2025-04-04 19:42 | EDRN ---
Per Jeronimo Kelly COMMERCIAL INTELLIGENCE MANAGER, about 5 minutes ago she went out to waiting room to see pt and was informed pt went out to his car to get something
--- NOTE | 2025-04-04 20:22 | EDRN ---
Pt seen and discharged by Jeronimo Kelly NP. This RN did not see/examine pt - removing chart from [facility] only per Jeronimo Kelly NP
--- NOTE | 2025-04-04 23:36 | ED.GENMED ---
History of Present Illness
General
Chief Complaint: Wound Check/Suture Removal
Source: patient
Exam Limitations: none
Time Seen by Provider: 04/04/25 19:39
Nursing documentation reviewed up to this point in time: agreed with
History of Present Illness
History of Present Illness:
Patient to ED for dressing change to right foot. He as inpatient here for cellulitis, abscess to right plantar foot. Discharged home on with instructions to F/u with wound care center for dressing change QOD. He states he called for an
appointment and can not be seen there until Monday. Came to ED for dressing change. Denies fever/chills, increasing pain/redness/swelling to his foot. No discharge noted thru dressing.
Past History
Past History
ED Past Medical History: HTN and IDDM
ED Past Surgical History: Orthopedic
Social History
Tobacco: Smoker
Alcohol: None
Drug: None
Personal:
Living: with family
Review of Systems
Review of Systems
Allergies reviewed?: Yes
All Other Systems: ROS reviewed and negative except as documented in HPI and ROS
Constitutional: Reports no symptoms
EENT: Reports no symptoms
Respiratory: Reports no symptoms
Cardiac: Reports no symptoms
ABD/GI: Reports no symptoms
: Reports no symptoms
Musculoskeletal: Reports no symptoms
Skin: Reports other (surgical wound to plantar aspect of right foot.)
Neurological: Reports no symptoms
Psychiatric: Reports no symptoms
Phy Exam
General Physical Exam
General Presentation: well appearing and no apparent distress
General age: appears stated age
General Skin: warm and dry
General Habitus: normal
Musculoskeletal Exam
Musculoskeletal Exam: full ROM and neuro vasc intact
Skin Exam
Skin Exam: normal color, warm/dry, no rash and other (Dressing removed. Dry blood stained 4x4/s removed covering wound. Removed by me, no discharge noted for wound. Wound cleansed with NSS, packed with IOdiform and covered with DSD)
Psychiatric Exam
Psychiatric Exam: normal mood/affect
Course
Vital Signs
Initial and Last Documented VS:
Initial Vital Signs
Temp Pulse Resp BP Pulse Ox
98.1 F 71 16 121/77 98
04/04/25 18:28 04/04/25 18:28 04/04/25 18:28 04/04/25 18:28 04/04/25 18:28
Last Documented Vital Signs
Temp Pulse Resp BP Pulse Ox
98.1 F 71 16 121/77 98
04/04/25 18:28 04/04/25 18:28 04/04/25 18:28 04/04/25 18:28 04/04/25 23:36
*Pulse Oximetry
SaO2: 98
Oxygen Mode of Delivery: Room air
Patient hypoxic: no
*Critical Care Note
Total Time (30-74mins, 75-104mins- exclusive of procedures): Not Applicable
Update Note
Update Note:
Patient to ED for wound dressing change which was completed in ED by me. No redness, swelling or discharge from wound. Flushed with NSS, dried, packing and dry sterile dressing appied. WIll discharge home, follow up with wound center as scheduled.
ED Attending Note
-
Portions of this chart may have been created with voice recognition software.� Occasional wrong word or��sound alike� substitutions may have occurred due to the inherent limitations of voice recognition software.
Discharge Plan
Departure
Patient Disposition: Home (Routine Discharge)
Date of Disposition: 04/04/25
Time of Disposition: 20:20
Patient with high blood pressure during this ER visit?: No
Condition: Good
Covid-19: Not Applicable
Discharge Problem:
Encounter for wound re-check, Visit for wound care
Instructions: Wound Care (DC)
Prescriptions:
No Action
acetaminophen 325 mg Tablet
650 mg PO Q4HPRN PRN (Reason: mild pain/[place]/temp> 100.4F) Qty: 100 0RF
lisinopril 10 mg Tablet
10 mg PO DAILY Qty: 30 0RF
amoxicillin-pot clavulanate 875-125 mg Tablet
1 tab PO Q12 Qty: 20 0RF
oxycodone 5 mg Tablet
5 mg PO Q4HPRN PRN (Reason: moderate pain) Qty: 10 0RF
(DME) Contour Next Test Strips Strip
Qty: 200 1RF
Rx Instructions:
test AC and HS. Dx code: E11.9
insulin aspart U-100 [Novolog FlexPen U-100 Insulin] 100 unit/mL (3 mL) Insulin Pen
5 unit SC AC Qty: 5 1RF
insulin glargine [Lantus Solostar U-100 Insulin] 100 unit/mL (3 mL) Insulin Pen
15 unit SC HS Qty: 5 1RF
(DME) lancets [Color Lancets] 21 gauge Misc
Qty: 200 1RF
Rx Instructions:
test AC and HS. E11.9
(DME) pen needle, diabetic [Pen Needle] 29 gauge x 1/2' needle
See Rx Instructions .Route Qty: 100 1RF
Rx Instructions:
E11.9 diabetes.
(DME) Contour Next Test Strips Strip
Qty: 150 2RF
Rx Instructions:
Pt Testing 4 times a day
(DME) lancets [Microlet Lancet] Misc
Qty: 150 2RF
Rx Instructions:
Pt testing 4 times a day
(DME) pen needle, diabetic [Richelle 2nd Gen Pen Needle] 32 gauge x ' Needle
Qty: 200 0RF
Rx Instructions:
Pt testing 4 times a day
Referrals:
Wound Care Center [Outside] - Keep scheduled appt
Interventions
Interventions:
*Risk Screen - Suicide Last Done: 09/26/25 18:28
*Neglect/Abuse Screening Last Done: 04/04/25 18:28
*Nursing Disposition Last Done: 04/04/25 20:22
Discharge Date and Time
Discharge Date/Time: 04/04/25 20:22
Print Language: NEPALI
== END 2025-04-04 20:22 | disposition home or self-care (01) ==
LOC: EMR 18:06
PROVIDERS: EMERGENCY PHYSICIAN Emergency Medicine
DX: Z48.00 Encounter for change or removal of nonsurgical wound dressing (principal); I10 Essential (primary) hypertension; E11.9 Type 2 diabetes mellitus without complications; F17.200 Nicotine dependence, unspecified, uncomplicated; L02.611 Cutaneous abscess of right foot; Z79.4 Long term (current) use of insulin
CPT/HCPCS: 99282

== ENCOUNTER → 2025-04-15 08:34 | Outpatient (REF) | payer OTHER, SELFPAY | LOC: WOUND 08:34 | PROVIDERS: ATTENDING PHYSICIAN Surgery | DX: S91.301A Unspecified open wound, right foot, initial encounter (principal); E11.621 Type 2 diabetes mellitus with foot ulcer; E11.69 Type 2 diabetes mellitus with other specified complication; I10 Essential (primary) hypertension; X58.XXXA Exposure to other specified factors, initial encounter | CPT/HCPCS: 99203 ==